=== PATIENT | female | born 1945 | race Caucasian/White ===

== ENCOUNTER 2018-12-27 13:11 | Observation (INO) ==
[2018-12-27] MEDS ORDERED: 0.9 % Sodium Chloride 500 ML IVC ONE (13:19)
[2018-12-27] MEDS ORDERED: *HR* Morphine 2 MG/ML SYRINGE IVP ONE (13:19)
[2018-12-27] MEDS ORDERED: Ondansetron 4 MG/2 ML VIAL IVP ONE (13:19)
[2018-12-27] MEDS ORDERED: Isovue-370 500 ML BOTTLE IVP ONE (13:42)
[2018-12-27] MEDS ORDERED: Pantoprazole 40 MG VIAL IVP ONE (13:45)
--- NOTE | 2018-12-27 13:46 | Emergency Department Note ---
Disposition Clinical Impression: Metastatic disease Chest pain Qualifiers: Chest pain type: unspecified Qualified Code(s): R07.9 - Chest pain, unspecified Lung cancer Qualifiers: Laterality: unspecified laterality Lung location: unspecified part of lung Qualified Code(s): C34.90 - Malignant neoplasm of unspecified part of unspecified bronchus or lung Anemia Qualifiers: Anemia type: unspecified type Qualified Code(s): D64.9 - Anemia, unspecified Disposition: Admitted As Inpatient Condition: Fair Referrals: NONE,PCP [Primary Care Provider] - Time of Disposition: 16:43 General Adult HPI - General Chief complaint: ED Chest Pain Stated complaint: CP Time Seen by Provider: 12/27/18 13:13 Source: patient, family, EMS Mode of arrival: EMS Limitations: no limitations Nursing Notes Reviewed: Yes Vital Signs Reviewed: Yes - History of Present Illness HPI Narrative: 73-year-old female with a history of metastatic lung cancer with metastases to the brain recent postop from the [facility] neurosurgery presents for evaluation of chest pain and epigastric pain. States it started yesterday afternoon. No provoking symptoms. States that she was at rest when it occurred. States it has been fairly constant since then. Reports pain does radiate down her left arm. Describes a sharp pain. Notes dyspnea. States that she became diaphoretic as well as nauseous during the night. Denies any fevers. Has had a nonproductive cough. Patient denies any dysuria hematuria no change in bowels or bladder. Patient's family provided history stating that she recently quit smoking. Patient is not currently under any chemoradiation but does have plans for radiation therapy in the near future. No prior history of ACS or MIs. No history of PE. Pain Scale: 6 - Related Data Home Medications Medication Instructions Recorded Confirmed Acetaminophen [Tylenol] 500 mg PO Q6HR PRN 12/27/18 12/27/18 Carvedilol [Coreg] 12.5 mg PO BIDWM 12/27/18 12/27/18 Dexamethasone 4 mg PO DAILY 12/27/18 12/27/18 Famotidine [Heartburn Prevention] 20 mg PO BID 12/27/18 12/27/18 NIFEdipine [Nifedipine ER] 90 mg PO DAILY 12/27/18 12/27/18 Allergies Allergy/AdvReac Type Severity Reaction Status Date / Time No Known Allergies Allergy Verified 11/10/18 10:18 All systems ED: reviewed and negative except as stated. Constitutional: Denies: fever Cardiovascular: Reports: chest pain Respiratory: Reports: dyspnea. Denies: cough Gastrointestinal: Reports: nausea. Denies: abdominal pain, vomiting Neurological: Denies: headache, weakness Past Medical History - Past Medical History Source: patient Medical history: Reports: no medical history Psychiatric history: Reports: no psych history - Social History Smoking Status: Current every day smoker Smokeless Tobacco Status: No Alcohol use: Reports: none Drug use: Reports: none Physical Exam - General Limitations: no limitations General appearance: alert, in no apparent distress - Head Head exam: normocephalic, normal inspection, other (Neurosurgical scar appears to be well approximated with mark still in place. There are no erythema. There are no dehiscence.) - Eye Eye exam: Present: normal appearance, PERRL, EOMI - ENT ENT exam: normal exam, normal oropharynx - Neck Neck exam: Present: normal inspection, trachea midline - Chest Chest inspection: Present: normal inspection, symmetric chest wall rise - Respiratory Respiratory exam: Present: prolonged expiratory phase, other (Diffusely diminished). Absent: respiratory distress, wheezes - Abdominal Exam Abdominal exam: Present: soft, Non-Tender. Absent: tenderness - Extremities Exam Extremities exam: Present: normal inspection. Absent: pedal edema - Expanded Lower Extremity Exam Neurovascular/Tendon exam: Present: normal capillary refill. Absent: motor deficit, sensory deficit - Back Exam Back exam: Present: normal inspection - Neurological Exam Neurological exam: Present: alert, oriented X3, CN II-XII intact - Expanded Neurological Exam Patient oriented to: Present: person, place, time Speech: Present: fluid speech Cranial nerves: EOM function (II, III, IV, ): Normal, facial sensation (V): Normal, facial palsy (VII): Normal, spinal accessory function (XI): Normal, tongue deviation (XII): Normal Motor strength - LUE: 5/5 Motor strength - RUE: 5/5 Motor strength - LLE: 5/5 Motor strength - RLE: 5/5 Coma Scale Eye Opening: Spontaneous Coma Scale Motor Response: Obeys Commands Coma Scale Verbal Response: Oriented Coma Scale Total: 15 - Skin Skin exam: Present: warm, dry, intact, normal color Course Course Narrative: Patient seen and examined. Patient will get basic cardio pulmonary labs including troponin, BNP. Patient also get lipase hepatic panel. Patient will get CT of the head as well as CT Radha chest abdomen pelvis. Disposition anticipated for admission. - Reevaluation(s) Reevaluation #1: Patient does have a leukocytosis of the patient is on steroids. Time: 14:34 Reevaluation #2: Family and patient updated on plan of care. Patient's aware of her worsening her medical condition with worsening malignancy. Recommend palliative consult and goals of care discussion. Time: 16:46 Vital Signs Temperature 98.6 F 12/27/18 13:17 Pulse Rate 62 12/27/18 13:17 Respiratory Rate 18 12/27/18 13:17 Blood Pressure 117/51 12/27/18 13:17 O2 Sat by Pulse Oximetry 98 12/27/18 13:17 Temperature 98.6 F 12/27/18 13:17 Pulse Rate 60 12/27/18 13:36 Respiratory Rate 18 12/27/18 13:36 Blood Pressure 108/54 12/27/18 13:36 O2 Sat by Pulse Oximetry 96 12/27/18 13:39 Oxygen Delivery Oxygen Delivery Room Air Medical Decision Making - [facility] Narrative Medical decision making narrative: Patient with a history of metastatic lung cancer since for evaluation of chest pain and epigastric pain. Patient's ED workup reveals a leukocytosis likely s econdary to steroid use as well as malignancy. Patient nonfocal neurologic exam. Patient CT scan of the chest and pelvis reveals multiple metastatic abnormalities with new and progressive lesions. Patient's symptoms most likely consistent with progression of metastatic disease. Patient's pain was treated appropriately. Patient will be admitted to the hospital service for further pain control as well as goals care discussion. Patient was not given an aspirin given her recent brain surgery and believes that her chest pain is most likely related to her metastatic and progressive lesions. - Lab Data Lab results reviewed: Yes I reviewed the patient's lab results. Result diagrams: 12/27/18 13:53 12/27/18 13:53 Lab Results 12/27/18 12/27/18 12/27/18 Range/Units 13:53 13:53 13:53 WBC (4.3-11.1) K/mcL RBC (3.82-4.97) M/mcL Hgb (11.5-15.4) g/dL Hct (35.3-44.9) % MCV (83.0-100.0) fL MCH (28.0-33.3) pg MCHC (31.6-35.5) g/dL RDW (11.5-14.5) % Plt Count (140-400) K/mcL MPV (9.4-12.4) fL Seg Neutrophils % % Monocytes % % Neutrophils # (1.6-8.9) K/mcL Monocytes # (0.0-1.3) K/mcL Platelet Estimate (Normal) Clumped Platelets (Not Present) PT 13.2 H (9.4-12.1) Seconds INR 1.2 APTT 24.0 L (26.0-36.0) Seconds Sodium (136-145) mEq/L Potassium (3.5-5.1) mEq/L Chloride (98-107) mEq/L Carbon Dioxide (23-29) mEq/L BUN (8-23) mg/dL Creatinine (0.60-1.20) mg/dL Est GFR ( Amer) (> 60) Est GFR (Non-Af Amer) (> 60) BUN/Creatinine Ratio (6-26) Glucose (70-105) mg/dL Calculated Osmolality (280-300) Lactic Acid (0.5-2.2) mmol/L Calcium (8.6-10.3) mg/dL Total Bilirubin 0.8 (0.3-1.0) mg/dL Direct Bilirubin 0.2 (0.0-0.2) mg/dL Indirect Bilirubin 0.6 (0.0-1.2) mg/dL AST 14 (13-39) Units/L ALT 28 (7-52) Units/L Alkaline Phosphatase 153 H (34-104) Units/L Troponin I (< 0.04) ng/mL B-Natriuretic Peptide 424 H (Less than 100) pg/mL Serum Total Protein 5.4 L (6.4-8.9) g/dL Albumin 2.9 L (3.5-5.7) g/dL Globulin 2.5 (2.4-3.5) g/dL Albumin/Globulin Ratio 1.2 (1.1-2.2) Lipase 102 H (11-82) Units/L Urine Color (Yellow) Urine Clarity (Clear) Urine pH (5.0-8.0) pH Units Ur Specific [place] (1.010-1.025) Urine Protein (Neg-Trace) mg/dL Urine Glucose (UA) (Normal) mg/dL Urine Ketones (Negative) mg/dL Urine Blood (Negative) Urine Nitrite (Negative) Urine Bilirubin (Negative) Urine Urobilinogen (Normal) mg/dL Ur Leukocyte Esterase (Negative) Urine Microscopic RBC (0-3) per hpf Urine Microscopic WBC (0-3) per hpf Ur Squamous Epith Cells (None-Few) per lpf Urine Bacteria (None-Few) per hpf Hyaline Casts (None-Few) per lpf Ur Culture Indicated? (NO) 12/27/18 12/27/18 12/27/18 Range/Units 13:53 13:53 13:53 WBC 42.5 H* (4.3-11.1) K/mcL RBC 2.92 L (3.82-4.97) M/mcL Hgb 8.4 L (11.5-15.4) g/dL Hct 25.4 L (35.3-44.9) % MCV 87.0 (83.0-100.0) fL MCH 28.8 (28.0-33.3) pg MCHC 33.1 (31.6-35.5) g/dL RDW 15.8 H (11.5-14.5) % Plt Count 211 (140-400) K/mcL MPV 12.4 (9.4-12.4) fL Seg Neutrophils % 98.0 % Monocytes % 2.0 % Neutrophils # 41.7 H (1.6-8.9) K/mcL Monocytes # 0.9 (0.0-1.3) K/mcL Platelet Estimate Normal (Normal) Clumped Platelets Few A (Not Present) PT (9.4-12.1) Seconds INR APTT (26.0-36.0) Seconds Sodium 132 L (136-145) mEq/L Potassium 4.1 (3.5-5.1) mEq/L Chloride 102 (98-107) mEq/L Carbon Dioxide 23 (23-29) mEq/L BUN 20 (8-23) mg/dL Creatinine 0.44 L (0.60-1.20) mg/dL Est GFR ( Amer) > 60 (> 60) Est GFR (Non-Af Amer) > 60 (> 60) BUN/Creatinine Ratio 45 H (6-26) Glucose 178 H (70-105) mg/dL Calculated Osmolality 281 (280-300) Lactic Acid 1.1 (0.5-2.2) mmol/L Calcium 8.5 L (8.6-10.3) mg/dL Total Bilirubin (0.3-1.0) mg/dL Direct Bilirubin (0.0-0.2) mg/dL Indirect Bilirubin (0.0-1.2) mg/dL AST (13-39) Units/L ALT (7-52) Units/L Alkaline Phosphatase (34-104) Units/L Troponin I 0.03 (< 0.04) ng/mL B-Natriuretic Peptide (Less than 100) pg/mL Serum Total Protein (6.4-8.9) g/dL Albumin (3.5-5.7) g/dL Globulin (2.4-3.5) g/dL Albumin/Globulin Ratio (1.1-2.2) Lipase (11-82) Units/L Urine Color (Yellow) Urine Clarity (Clear) Urine pH (5.0-8.0) pH Units Ur Specific [place] (1.010-1.025) Urine Protein (Neg-Trace) mg/dL Urine Glucose (UA) (Normal) mg/dL Urine Ketones (Negative) mg/dL Urine Blood (Negative) Urine Nitrite (Negative) Urine Bilirubin (Negative) Urine Urobilinogen (Normal) mg/dL Ur Leukocyte Esterase (Negative) Urine Microscopic RBC (0-3) per hpf Urine Microscopic WBC (0-3) per hpf Ur Squamous Epith Cells (None-Few) per lpf Urine Bacteria (None-Few) per hpf Hyaline Casts (None-Few) per lpf Ur Culture Indicated? (NO) 12/27/18 Range/Units Unknown WBC (4.3-11.1) K/mcL RBC (3.82-4.97) M/mcL Hgb (11.5-15.4) g/dL Hct (35.3-44.9) % MCV (83.0-100.0) fL MCH (28.0-33.3) pg MCHC (31.6-35.5) g/dL RDW (11.5-14.5) % Plt Count (140-400) K/mcL MPV (9.4-12.4) fL Seg Neutrophils % % Monocytes % % Neutrophils # (1.6-8.9) K/mcL Monocytes # (0.0-1.3) K/mcL Platelet Estimate (Normal) Clumped Platelets (Not Present) PT (9.4-12.1) Seconds INR APTT (26.0-36.0) Seconds Sodium (136-145) mEq/L Potassium (3.5-5.1) mEq/L Chloride (98-107) mEq/L Carbon Dioxide (23-29) mEq/L BUN (8-23) mg/dL Creatinine (0.60-1.20) mg/dL Est GFR ( Amer) (> 60) Est GFR (Non-Af Amer) (> 60) BUN/Creatinine Ratio (6-26) Glucose (70-105) mg/dL Calculated Osmolality (280-300) Lactic Acid (0.5-2.2) mmol/L Calcium (8.6-10.3) mg/dL Total Bilirubin (0.3-1.0) mg/dL Direct Bilirubin (0.0-0.2) mg/dL Indirect Bilirubin (0.0-1.2) mg/dL AST (13-39) Units/L ALT (7-52) Units/L Alkaline Phosphatase (34-104) Units/L Troponin I (< 0.04) ng/mL B-Natriuretic Peptide (Less than 100) pg/mL Serum Total Protein (6.4-8.9) g/dL Albumin (3.5-5.7) g/dL Globulin (2.4-3.5) g/dL Albumin/Globulin Ratio (1.1-2.2) Lipase (11-82) Units/L Urine Color Yellow (Yellow) Urine Clarity Clear (Clear) Urine pH 6.0 (5.0-8.0) pH Units Ur Specific [place]gil > 1.030 H (1.010-1.025) Urine Protein Negative (Neg-Trace) mg/dL Urine Glucose (UA) Normal (Normal) mg/dL Urine Ketones Negative (Negative) mg/dL Urine Blood Trace H (Negative) Urine Nitrite Negative (Negative) Urine Bilirubin Negative (Negative) Urine Urobilinogen Normal (Normal) mg/dL Ur Leukocyte Esterase Small H (Negative) Urine Microscopic RBC 3-5 H (0-3) per hpf Urine Microscopic WBC 30-50 H (0-3) per hpf Ur Squamous Epith Cells Many H (None-Few) per lpf Urine Bacteria Many H (None-Few) per hpf Hyaline Casts None Seen (None-Few) per lpf Ur Culture Indicated? NO. A (NO) - Radiology Data Radiology results reviewed: Yes I reviewed the patient's radiology results. Chest X-Ray 12/27/18 13:19 IMPRESSION: Cavitary left upper lobe mass, presumed malignant. New right lower lung lesion, possibly pleural mass or loculated pleural fluid. D/ / 12/27/2018 14:02:18 Stas Conroy MD / juan carlos Interpreting Provider: Stas Conroy MD CT Dissection 12/27/18 13:42 IMPRESSION: 1. Atherosclerotic disease of the aorta, without evidence of aneurysm or dissection. 2. Interval increase in size of the patient's left upper lobe cavitary mass, most consistent with progressive primary lung cancer. 3. New small bilateral pleural effusions with mild bibasilar atelectasis. 4. Interval increase in size of a now 12 mm left lower lobe pulmonary nodule, most consistent with metastatic disease. 5. Interval enlargement of a malignant and likely metastatic AP window lymph node. 6. Interval enlargement of bilateral adrenal metastases. 7. Multiple various sized low-attenuation nodules within the pancreatic body and tail, most likely reflecting metastatic disease given their multiplicity. A primary pancreatic malignancy cannot be entirely excluded. 8. Fat stranding with upper quadrant with multiple scattered low-attenuation nodular lesions throughout the mesentery are most consistent with peritoneal carcinomatosis, as detailed above. 9. Moderate amount of nonspecific free pelvic fluid. 10. Interval increase in size of a destructive osseous metastasis of the right 7th rib. D/ / Sim Medellin MD / Sim Medellin MD Interpreting Provider: Sim Medellin MD Head CT 12/27/18 13:42 IMPRESSION: 1. Multiple brain lesions as described compatible with metastatic disease. 2. No evidence of acute intracranial hemorrhage or midline shift or herniation. 3. Postsurgical changes in the right parieto-occipital region. D/ / 12/27/2018 15:41:21 Bella [facility]gen MD [facility] Interpre[facility] Provider: Bella Virgen MD - EKG Data EKG #1 EKG attestation: Yes I reviewed and interpreted this EKG. EKG shows normal: sinus rhythm Rate: normal Rhythm: NSR [place]/QRS: normal T wave inversions noted in: aVL, aVR, v1 Interpretation: no acute changes S.B.A.R. - S.B.A.RAyla Situation: Demographics Background: Presenting Complaint Assessment: Vital Signs, Patient/Family Expectation Recommendation: Barrier(s) to disposition, Recommendation based on pending studies, treatments, or consults S.B.A.RAyla Report Given to: Dr. Kait Lewis Repor Time: 16:38 Attestation Statement - Attestation Attestation: I, Anshul Taylor DO, examined this patient [id number] and my medical decision-making was reviewed with Dr. Keegan Paige, Resident Physician. I agree with the documented findings, disposition and treatment plan as described except to the extent set forth below. I personally supervised and was present for the avalos/critical portions of the procedures completed by the resident documented below. Please see my progress notes for details.
[2018-12-27 14:14] LABS: Hematocrit 25.4 % (35.3-44.9); Hemoglobin 8.4 g/dL (11.5-15.4); Mean Corpuscular HGB Conc 33.1 g/dL (31.6-35.5); Mean Corpuscular Hemoglobin 28.8 pg (28.0-33.3); Mean Platelet Volume 12.4 fL (9.4-12.4); Platelet Count 211 K/mcL (140-400); Red Blood Count 2.92 M/mcL (3.82-4.97); Red Cell Distribution Width 15.8 % (11.5-14.5)
[2018-12-27 14:18] LABS: INR 1.2; Prothrombin Time 13.2 Seconds (9.4-12.1)
[2018-12-27 14:30] LABS: Albumin 2.9 g/dL (3.5-5.7); Albumin/Globulin Ratio 1.2 (1.1-2.2); Bilirubin,Direct 0.2 mg/dL (0.0-0.2); Bilirubin,Indirect 0.6 mg/dL (0.0-1.2); Bilirubin,Total 0.8 mg/dL (0.3-1.0); Globulin 2.5 g/dL (2.4-3.5); Total Protein 5.4 g/dL (6.4-8.9)
[2018-12-27 14:31] LABS: BUN/Creatinine Ratio 45 (6-26); Blood Urea Nitrogen 20 mg/dL (8-23); Calcium 8.5 mg/dL (8.6-10.3); Carbon Dioxide 23 mEq/L (23-29); Chloride 102 mEq/L (98-107); Glucose 178 mg/dL (70-105); Osmolality,Calculated 281 (280-300); Potassium 4.1 mEq/L (3.5-5.1); Sodium 132 mEq/L (136-145); eGFR For Non-African Americans > 60 (> 60)
[2018-12-27 14:32] LABS: Troponin I 0.03 ng/mL (< 0.04)
[2018-12-27 15:57] LABS: Monocytes # 0.9 K/mcL (0.0-1.3); Neutrophils # 41.7 K/mcL (1.6-8.9)
[2018-12-27 15:58] LABS: Platelet Estimate Normal (Normal)
[2018-12-27 15:59] LABS: Platelet Clumps Few (Not Present)
--- NOTE | 2018-12-27 17:03 | Emergency Department Note ---
Disposition Clinical Impression: Metastatic disease Chest pain Qualifiers: Chest pain type: unspecified Qualified Code(s): R07.9 - Chest pain, unspecified Lung cancer Qualifiers: Laterality: unspecified laterality Lung location: unspecified part of lung Qualified Code(s): C34.90 - Malignant neoplasm of unspecified part of unspecified bronchus or lung Anemia Qualifiers: Anemia type: unspecified type Qualified Code(s): D64.9 - Anemia, unspecified Disposition: Admitted As Inpatient Condition: Fair Referrals: NONE,PCP [Primary Care Provider] - Time of Disposition: 18:02 General Adult HPI - General Chief complaint: ED Chest Pain Stated complaint: CP Time Seen by Provider: 12/27/18 13:13 Source: patient, family, EMS Mode of arrival: EMS Limitations: no limitations - History of Present Illness Pain Scale: 6 - Related Data Home Medications Medication Instructions Recorded Confirmed Acetaminophen [Tylenol] 500 mg PO Q6HR PRN 12/27/18 12/27/18 Carvedilol [Coreg] 12.5 mg PO BIDWM 12/27/18 12/27/18 Dexamethasone 4 mg PO DAILY 12/27/18 12/27/18 Famotidine [Heartburn Prevention] 20 mg PO BID 12/27/18 12/27/18 NIFEdipine [Nifedipine ER] 90 mg PO DAILY 12/27/18 12/27/18 Allergies Allergy/AdvReac Type Severity Reaction Status Date / Time No Known Allergies Allergy Verified 11/10/18 10:18 Constitutional: Denies: fever Cardiovascular: Reports: chest pain Respiratory: Reports: dyspnea. Denies: cough Gastrointestinal: Reports: nausea. Denies: abdominal pain, vomiting Neurological: Denies: headache, weakness Past Medical History - Past Medical History Medical history: Reports: no medical history Psychiatric history: Reports: no psych history - Social History Smoking Status: Current every day smoker Smokeless Tobacco Status: No Alcohol use: Reports: none Drug use: Reports: none Physical Exam - General Limitations: no limitations General appearance: alert, in no apparent distress Course Vital Signs Temperature 98.6 F 12/27/18 13:17 Pulse Rate 62 12/27/18 13:17 Respiratory Rate 18 12/27/18 13:17 Blood Pressure 117/51 12/27/18 13:17 O2 Sat by Pulse Oximetry 98 12/27/18 13:17 Temperature 98.6 F 12/27/18 13:17 Pulse Rate 60 12/27/18 13:36 Respiratory Rate 18 12/27/18 13:36 Blood Pressure 108/54 12/27/18 13:36 O2 Sat by Pulse Oximetry 96 12/27/18 13:39 Oxygen Delivery Oxygen Delivery Room Air Medical Decision Making - Lab Data Result diagrams: 12/27/18 13:53 12/27/18 13:53 Lab Results 12/27/18 12/27/18 12/27/18 Range/Units 13:53 13:53 13:53 WBC (4.3-11.1) K/mcL RBC (3.82-4.97) M/mcL Hgb (11.5-15.4) g/dL Hct (35.3-44.9) % MCV (83.0-100.0) fL MCH (28.0-33.3) pg MCHC (31.6-35.5) g/dL RDW (11.5-14.5) % Plt Count (140-400) K/mcL MPV (9.4-12.4) fL Seg Neutrophils % % Monocytes % % Neutrophils # (1.6-8.9) K/mcL Monocytes # (0.0-1.3) K/mcL Platelet Estimate (Normal) Clumped Platelets (Not Present) PT 13.2 H (9.4-12.1) Seconds INR 1.2 APTT 24.0 L (26.0-36.0) Seconds Sodium (136-145) mEq/L Potassium (3.5-5.1) mEq/L Chloride (98-107) mEq/L Carbon Dioxide (23-29) mEq/L BUN (8-23) mg/dL Creatinine (0.60-1.20) mg/dL Est GFR ( Amer) (> 60) Est GFR (Non-Af Amer) (> 60) BUN/Creatinine Ratio (6-26) Glucose (70-105) mg/dL Calculated Osmolality (280-300) Lactic Acid (0.5-2.2) mmol/L Calcium (8.6-10.3) mg/dL Total Bilirubin 0.8 (0.3-1.0) mg/dL Direct Bilirubin 0.2 (0.0-0.2) mg/dL Indirect Bilirubin 0.6 (0.0-1.2) mg/dL AST 14 (13-39) Units/L ALT 28 (7-52) Units/L Alkaline Phosphatase 153 H (34-104) Units/L Troponin I (< 0.04) ng/mL B-Natriuretic Peptide 424 H (Less than 100) pg/mL Serum Total Protein 5.4 L (6.4-8.9) g/dL Albumin 2.9 L (3.5-5.7) g/dL Globulin 2.5 (2.4-3.5) g/dL Albumin/Globulin Ratio 1.2 (1.1-2.2) Lipase 102 H (11-82) Units/L Urine Color (Yellow) Urine Clarity (Clear) Urine pH (5.0-8.0) pH Units Ur Specific [place] (1.010-1.025) Urine Protein (Neg-Trace) mg/dL Urine Glucose (UA) (Normal) mg/dL Urine Ketones (Negative) mg/dL Urine Blood (Negative) Urine Nitrite (Negative) Urine Bilirubin (Negative) Urine Urobilinogen (Normal) mg/dL Ur Leukocyte Esterase (Negative) Urine Microscopic RBC (0-3) per hpf Urine Microscopic WBC (0-3) per hpf Ur Squamous Epith Cells (None-Few) per lpf Urine Bacteria (None-Few) per hpf Hyaline Casts (None-Few) per lpf Ur Culture Indicated? (NO) 12/27/18 12/27/18 12/27/18 Range/Units 13:53 13:53 13:53 WBC 42.5 H* (4.3-11.1) K/mcL RBC 2.92 L (3.82-4.97) M/mcL Hgb 8.4 L (11.5-15.4) g/dL Hct 25.4 L (35.3-44.9) % MCV 87.0 (83.0-100.0) fL MCH 28.8 (28.0-33.3) pg MCHC 33.1 (31.6-35.5) g/dL RDW 15.8 H (11.5-14.5) % Plt Count 211 (140-400) K/mcL MPV 12.4 (9.4-12.4) fL Seg Neutrophils % 98.0 % Monocytes % 2.0 % Neutrophils # 41.7 H (1.6-8.9) K/mcL Monocytes # 0.9 (0.0-1.3) K/mcL Platelet Estimate Normal (Normal) Clumped Platelets Few A (Not Present) PT (9.4-12.1) Seconds INR APTT (26.0-36.0) Seconds Sodium 132 L (136-145) mEq/L Potassium 4.1 (3.5-5.1) mEq/L Chloride 102 (98-107) mEq/L Carbon Dioxide 23 (23-29) mEq/L BUN 20 (8-23) mg/dL Creatinine 0.44 L (0.60-1.20) mg/dL Est GFR ( Amer) > 60 (> 60) Est GFR (Non-Af Amer) > 60 (> 60) BUN/Creatinine Ratio 45 H (6-26) Glucose 178 H (70-105) mg/dL Calculated Osmolality 281 (280-300) Lactic Acid 1.1 (0.5-2.2) mmol/L Calcium 8.5 L (8.6-10.3) mg/dL Total Bilirubin (0.3-1.0) mg/dL Direct Bilirubin (0.0-0.2) mg/dL Indirect Bilirubin (0.0-1.2) mg/dL AST (13-39) Units/L ALT (7-52) Units/L Alkaline Phosphatase (34-104) Units/L Troponin I 0.03 (< 0.04) ng/mL B-Natriuretic Peptide (Less than 100) pg/mL Serum Total Protein (6.4-8.9) g/dL Albumin (3.5-5.7) g/dL Globulin (2.4-3.5) g/dL Albumin/Globulin Ratio (1.1-2.2) Lipase (11-82) Units/L Urine Color (Yellow) Urine Clarity (Clear) Urine pH (5.0-8.0) pH Units Ur Specific [place] (1.010-1.025) Urine Protein (Neg-Trace) mg/dL Urine Glucose (UA) (Normal) mg/dL Urine Ketones (Negative) mg/dL Urine Blood (Negative) Urine Nitrite (Negative) Urine Bilirubin (Negative) Urine Urobilinogen (Normal) mg/dL Ur Leukocyte Esterase (Negative) Urine Microscopic RBC (0-3) per hpf Urine Microscopic WBC (0-3) per hpf Ur Squamous Epith Cells (None-Few) per lpf Urine Bacteria (None-Few) per hpf Hyaline Casts (None-Few) per lpf Ur Culture Indicated? (NO) 12/27/18 Range/Units Unknown WBC (4.3-11.1) K/mcL RBC (3.82-4.97) M/mcL Hgb (11.5-15.4) g/dL Hct (35.3-44.9) % MCV (83.0-100.0) fL MCH (28.0-33.3) pg MCHC (31.6-35.5) g/dL RDW (11.5-14.5) % Plt Count (140-400) K/mcL MPV (9.4-12.4) fL Seg Neutrophils % % Monocytes % % Neutrophils # (1.6-8.9) K/mcL Monocytes # (0.0-1.3) K/mcL Platelet Estimate (Normal) Clumped Platelets (Not Present) PT (9.4-12.1) Seconds INR APTT (26.0-36.0) Seconds Sodium (136-145) mEq/L Potassium (3.5-5.1) mEq/L Chloride (98-107) mEq/L Carbon Dioxide (23-29) mEq/L BUN (8-23) mg/dL Creatinine (0.60-1.20) mg/dL Est GFR ( Amer) (> 60) Est GFR (Non-Af Amer) (> 60) BUN/Creatinine Ratio (6-26) Glucose (70-105) mg/dL Calculated Osmolality (280-300) Lactic Acid (0.5-2.2) mmol/L Calcium (8.6-10.3) mg/dL Total Bilirubin (0.3-1.0) mg/dL Direct Bilirubin (0.0-0.2) mg/dL Indirect Bilirubin (0.0-1.2) mg/dL AST (13-39) Units/L ALT (7-52) Units/L Alkaline Phosphatase (34-104) Units/L Troponin I (< 0.04) ng/mL B-Natriuretic Peptide (Less than 100) pg/mL Serum Total Protein (6.4-8.9) g/dL Albumin (3.5-5.7) g/dL Globulin (2.4-3.5) g/dL Albumin/Globulin Ratio (1.1-2.2) Lipase (11-82) Units/L Urine Color Yellow (Yellow) Urine Clarity Clear (Clear) Urine pH 6.0 (5.0-8.0) pH Units Ur Specific [place] > 1.030 H (1.010-1.025) Urine Protein Negative (Neg-Trace) mg/dL Urine Glucose (UA) Normal (Normal) mg/dL Urine Ketones Negative (Negative) mg/dL Urine Blood Trace H (Negative) Urine Nitrite Negative (Negative) Urine Bilirubin Negative (Negative) Urine Urobilinogen Normal (Normal) mg/dL Ur Leukocyte Esterase Small H (Negative) Urine Microscopic RBC 3-5 H (0-3) per hpf Urine Microscopic WBC 30-50 H (0-3) per hpf Ur Squamous Epith Cells Many H (None-Few) per lpf Urine Bacteria Many H (None-Few) per hpf Hyaline Casts None Seen (None-Few) per lpf Ur Culture Indicated? NO. A (NO) Attestation Statement - Attestation Attestation: I, Anshul Taylor DO, examined this patient [id number] and my medical decision-making was reviewed with Dr. Keegan Paige, Resident Physician. I agree with the documented findings, disposition and treatment plan as described except to the extent set forth below. I personally supervised and was present for the avalos/critical portions of the procedures completed by the resident documented below. Please see my progress notes for details. 73-year-old female presents emergency room for evaluation of chest discomfort and pain. Patient recently was evaluated at [facility] where she had a mass removed from her brain. This was a days ago. She has known metastatic lung cancer and has not started chemotherapy or radiation therapy yet at this time. Patient was diagnosed 2 weeks ago. She is denying any fevers or chills. She does not have any nausea vomiting or diarrhea. Denies any headache or vision change. She has not fallen or injured herself. Patient will have detailed cardiac evaluation as well as CT angiography of the chest abdomen and pelvis CT imaging of the head and detailed laboratory workup completed this point. Patient does not show any acute signs of decompensation but because of the history there is concern for clinical decompensation. Postoperative surgical site on the posterior aspect of the right side of the skull is stable with no bleeding noted. No redness noted. Head is atraumatic otherwise. Pupils are equal and reactive. Extracted muscles are intact. Oropharynx is patent. Trachea is midline. Lungs are clear to auscultation. Heart is regular. Abdomen is soft. No guarding rigidity or peritoneal symptoms noted. No signs of swelling in the extremities. Patient is otherwise describing no distress. She does have pain medication and place at home. Vital signs otherwise unremarkable. Patient is resting comfortably. Detailed workup to be established family informed the clinical presentation secondary to the most recent surgical intervention. No visible signs of swelling or asymmetry to the lower extremities that would account for concern for emboli. Detailed workup will be established and completed. Expect the patient will require admission once this workup has been resulted. See detailed documentation the physical exam, medical intervention, medical decision-making and disposition in the resident physician's note. No critical care provider the patient's treatment course at this time. 1800 Patient is found to have stable workup at this time. Multiple findings noted on CT imaging concerning for progressive metastatic disease. Clinical outcome is most likely poor over the next 6 months. She does not have any acute signs of myocardial infarction or infection at this time. Hospitalist Dr. Carballo reviewed the case. Did not have any other recommendations or concerns at this time. Currently the patient is a full code. Patient will be monitored here until treatment course is established and admission is completed. No critical care pad the patient's treatment course.
[2018-12-27 17:17] LABS: Bilirubin,Urine Negative (Negative); Blood,Urine Trace (Negative); Clarity,Urine Clear (Clear); Color,Urine Yellow (Yellow); Glucose,Urine (UA) Normal (Normal); Ketones,Urine Negative (Negative); Leukocyte Esterase,Urine Small (Negative); Nitrite,Urine Negative (Negative); Protein,Urine Negative (Neg-Trace); Specific Gravity,Urine > 1.030 (1.010-1.025); Urobilinogen,Urine Normal (Normal)
[2018-12-27 17:19] LABS: Bacteria,Urine Many per hpf (None-Few); Hyaline Casts,Urine None Seen per lpf (None-Few); Squamous Epithelial Cell,Urine Many per lpf (None-Few); WBC,Urine 30-50 per hpf (0-3)
[2018-12-27] MEDS ORDERED: MOM Conc 10 ML UD.LIQ PO PRN (18:10)
[2018-12-27] MEDS ORDERED: Naloxone 0.4 MG/ML INJ IVP PRN (18:10)
[2018-12-27] MEDS ORDERED: Ondansetron 4 MG/2 ML VIAL IVP PRN (18:10)
[2018-12-27] MEDS ORDERED: Acetaminophen 325 MG TABLET PO PRN (18:10)
[2018-12-27] MEDS ORDERED: *HR* HYDROcodone/Acet 5/325 mg TABLET PO PRN ×2 (18:10→18:33)
[2018-12-27] MEDS ORDERED: Aspirin 325 MG TABLET PO ONE (18:13)
[2018-12-27] MEDS ORDERED: Ipratropium/Albuterol Neb 3 ML IH PRN (18:16)
--- NOTE | 2018-12-27 18:25 | Internal Med History&Physical ---
Date of Encounter: 12/27/18 Time of Encounter: 18:01 Internal Medicine - H&P: HPI Chief complaint: chest pain Admitted From: Home Plans for Post Hospital Care: Home History of present illness: Ms. Flynn is a 73 year old female with PMH of newly diagnosed with lung ca with extensive metastatic disease including the brain. Pt was seen and examined with daughter and RN present at bedside. Pt states she was diagnosed with lung ca within the last month and given significant brain mets, she underwent surgical resection of the mass yesterday at [facility]. She states last night she started having sharp midline chest pain with radiation to the left arm that persisted until this morning. She states taking a deep breath made her pain worst. Currently she is resting in bed and denies any chest pain at this time. Has hx of extensive tobacco abuse and reports of quitting two weeks ago. Pt states she is scheduled for her first appointment with oncology at [facility] on January 02. ER workup included CT head, CT chest, abd/pelvis imaging workup reported extensive metastatic disease with concern for pancreatic malignancy being the primary source. I had an extensive conversation with the patient in regards to her advance directives, she wishes to be a DNR/DNI Past Med Surg Social Fam HX - Past Medical History Medical history: malignancy (metastatic lung ca) Psychiatric history: no psych history - Past Surgical History Additional surgical history: tumor removal from head - Social History Smoking Status: Former smoker Smokeless Tobacco Status: No Alcohol use: none Drug use: none Internal Medicine - H&P: Meds Acetaminophen [Tylenol] 500 mg PO Q6HR PRN 12/27/18 [History] Carvedilol [Coreg] 12.5 mg PO BIDWM 12/27/18 [History] Dexamethasone 4 mg PO DAILY 12/27/18 [History] Famotidine [Heartburn Prevention] 20 mg PO BID 12/27/18 [History] NIFEdipine [Nifedipine ER] 90 mg PO DAILY 12/27/18 [History] Allergy/AdvReac Type Severity Reaction Status Date / Time No Known Allergies Allergy Verified 11/10/18 10:18 All Systems PM: A 10-system review of systems was performed and is negative for pertinent findings except as documented above in the HPI. Review of systems: Ten point ROS is negative except as listed in HPI - Constitutional Vitals: Temp Pulse Resp BP Pulse Ox 98.6 F 60 18 108/54 96 12/27/18 13:17 12/27/18 13:36 12/27/18 13:36 12/27/18 13:36 12/27/18 13:39 Exam: General: No acute distress, AAO x 3 HEENT: EOMI, NC/AT, no scleral icterus, PERRLA, mark intact at the right pareito-occipital region of the skull-site clean, no bleeding noted Respiratory: coarse breath sounds, no wheezing, no rales Cardiovascular: Regular, Rate, Rhythm, No murmurs GI: Soft, Non tender, non distended, normal bowel sounds Ext: No edema, no tenderness, positive pulses Neuro: AAO x 3, no focal deficits Internal Med - H&P Results - Labs CBC & Chem 7: 12/27/18 13:53 12/27/18 13:53 Labs: Short CBC 12/27/18 Range/Units 13:53 WBC 42.5 H* (4.3-11.1) K/mcL Hgb 8.4 L (11.5-15.4) g/dL Hct 25.4 L (35.3-44.9) % Plt Count 211 (140-400) K/mcL Neutrophils # 41.7 H (1.6-8.9) K/mcL BMP 12/27/18 13:53 Sodium 132 L Potassium 4.1 Chloride 102 Carbon Dioxide 23 BUN 20 Creatinine 0.44 L Glucose 178 H Calcium 8.5 L Cardiac Enzymes 12/27/18 Range/Units 13:53 Troponin I 0.03 (< 0.04) ng/mL Liver Function 12/27/18 Range/Units 13:53 Total Bilirubin 0.8 (0.3-1.0) mg/dL Direct Bilirubin 0.2 (0.0-0.2) mg/dL AST 14 (13-39) Units/L ALT 28 (7-52) Units/L Alkaline Phosphatase 153 H (34-104) Units/L Albumin 2.9 L (3.5-5.7) g/dL Urine 12/27/18 Range/Units Unknown Urine Color Yellow (Yellow) Urine Clarity Clear (Clear) Urine pH 6.0 (5.0-8.0) pH Units Ur Specific [place] > 1.030 H (1.010-1.025) Urine Protein Negative (Neg-Trace) mg/dL Urine Glucose (UA) Normal (Normal) mg/dL - Impressions ITS Impressions Chest X-Ray 12/27/18 13:19 IMPRESSION: Cavitary left upper lobe mass, presumed malignant. New right lower lung lesion, possibly pleural mass or loculated pleural fluid. D/ / 12/27/2018 14:02:18 Stas Conroy MD / juan [facility] Interpreting Provider: Stas Conroy MD CT Dissection 12/27/18 13:42 IMPRESSION: 1. Atherosclerotic disease of the aorta, without evidence of aneurysm or dissection. 2. Interval increase in size of the patient's left upper lobe cavitary mass, most consistent with progressive primary lung cancer. 3. New small bilateral pleural effusions with mild bibasilar atelectasis. 4. Interval increase in size of a now 12 mm left lower lobe pulmonary nodule, most consistent with metastatic disease. 5. Interval enlargement of a malignant and likely metastatic AP window lymph node. 6. Interval enlargement of bilateral adrenal metastases. 7. Multiple various sized low-attenuation nodules within the pancreatic body and tail, most likely reflecting metastatic disease given their multiplicity. A primary pancreatic malignancy cannot be entirely excluded. 8. Fat stranding within the left upper quadrant with multiple scattered low-attenuation nodular lesions throughout the mesentery are most consistent with peritoneal carcinomatosis, as detailed above. 9. Moderate amount of nonspecific free pelvic fluid. 10. Interval increase in size of a destructive osseous metastasis of the right 7th rib. D/ / 12/27/2018 16:23:05 [facility] Provider: Sim Medellin MD Head CT 12/27/18 13:42 IMPRESSION: 1. Multiple brain lesions as described compatible with metastatic disease. 2. No evidence of acute intracranial hemorrhage or midline shift or herniation. 3. Postsurgical changes in the right parieto-occipital region. D/ / 12/27/2018 15:41:21 Bella Virgen MD / [facility] Interpreting Provider: Bella Virgen MD - Summary of Assessment and Plan Summary of Assessment and Plan: Patient is a 73y/o female with newly diagnosed metastatic disease who presents to the ER for evaluation of chest pain. 1. Chest pain likely secondary to underlying malignancy and unlikely ACS will obtain 2D echo, monitor serial troponins continue tele monitoring will hold off on Aspirin at this time given recent brain surgery 2. Extensive metastatic disease with concern for pancreatic ca being the primary source Extensive mets to the brain, lungs, peritoneum Pt has yet to have a formal appointment with oncology at [facility], scheduled on January 02. given extensive disease and poor prognosis, will obtain palliative care evaluation to establish goals of care continue supportive care pain control, anti-emetic support as needed continue dexamethasone 4mg po qdaily 3. Leukocytosis likely reactive given recent steroid use however given recent surgery and immunocompromised status, will give one time dose of Vancomycin and Zosyn will closely monitor DVT ppx: SCD Care plan discussed with patient/family/RN - Time Spent With Patient Total time spent is greater than 50% in coordination of care (as documented) at patient's floor/unit and/or counseling patient: 25 - 35 minutes
[2018-12-27] MEDS ORDERED: Perflutren Lipid Microsphere 1.3 ML in 0.9 % Sodium Chloride 8.7 ML IVP ONE (19:16)
[2018-12-27] MEDS: Piperacillin/Tazobactam 3.375 GM in 0.9 % Sodium Chloride Mini Bag 100 ML IVPB SCH (20:59)
[2018-12-27] MEDS: 0.9 % Sodium Chloride 1,000 ML IVC SCH (20:59)
[2018-12-27] MEDS: Famotidine 20 MG TABLET PO SCH (21:01)
[2018-12-27] MEDS: *HR* OxyCODONE Immed Rel 5 MG TABLET PO PRN (21:12)
[2018-12-28 01:42] LABS: Alanine Aminotransferase 25 Units/L (7-52); Albumin 2.8 g/dL (3.5-5.7); Albumin/Globulin Ratio 1.2 (1.1-2.2); Alkaline Phosphatase 154 Units/L (34-104); Aspartate Amino Transferase 13 Units/L (13-39); BUN/Creatinine Ratio 40 (6-26); Bilirubin,Total 0.8 mg/dL (0.3-1.0); Blood Urea Nitrogen 23 mg/dL (8-23); Calcium 8.3 mg/dL (8.6-10.3); Carbon Dioxide 23 mEq/L (23-29); Chloride 102 mEq/L (98-107); Chol/HDL Ratio 4.7 (0-4.9); Cholesterol 146 mg/dL (< 200); Globulin 2.3 g/dL (2.4-3.5); Glucose 140 mg/dL (70-105); HDL Cholesterol 31 mg/dL (40-59); LDL Cholesterol,Calculated 98 mg/dL (0-99); Osmolality,Calculated 280 (280-300); Potassium 4.4 mEq/L (3.5-5.1); Sodium 132 mEq/L (136-145); Total Protein 5.1 g/dL (6.4-8.9); Triglycerides 86 mg/dL (< 150); eGFR For Non-African Americans > 60 (> 60)
[2018-12-28 01:51] LABS: Mean Platelet Volume 12.5 fL (9.4-12.4); Segmented Neutrophils % 92.8 %
[2018-12-28 01:52] LABS: Basophils # 0.1 K/mcL (0.0-0.2); Basophils % 0.3 %; Hematocrit 24.2 % (35.3-44.9); Hemoglobin 7.9 g/dL (11.5-15.4); Immature Granulocytes % 2.2 % (0-4); Lymphocytes # 1.3 K/mcL (0.6-4.6); Lymphocytes % 2.8 %; Mean Corpuscular HGB Conc 32.6 g/dL (31.6-35.5); Mean Corpuscular Hemoglobin 28.4 pg (28.0-33.3); Mean Corpuscular Volume 87.1 fL (83.0-100.0); Monocytes # 0.9 K/mcL (0.0-1.3); Monocytes % 1.9 %; Platelet Count 198 K/mcL (140-400); Red Blood Count 2.78 M/mcL (3.82-4.97); Red Cell Distribution Width 15.8 % (11.5-14.5)
[2018-12-28 02:01] LABS: Neutrophils # 43.8 K/mcL (1.6-8.9)
[2018-12-28 02:16] LABS: Platelet Estimate Normal (Normal)
[2018-12-28 02:17] LABS: Hypochromasia Present (Not Present)
--- NOTE | 2018-12-28 03:03 | Event Note ---
Date of Encounter: 12/28/18 Time of Encounter: 01:52 Notified by nurse of patient troponin elevating to 0.23, still denying any chest pain. Assessed patient at bedside, has had no chest pain since arrival. Discussed elevated troponin and contraindications for anticoagulation given recent brain mass removal one week ago at [facility]. Repeat EKG with no changes. Will repeat troponin in six hours and order cardiology consult. Discussed with Dr Suazo.
[2018-12-28] MEDS: *HR* OxyCODONE Immed Rel 5 MG TABLET PO PRN (07:34)
[2018-12-28] MEDS: Piperacillin/Tazobactam 3.375 GM in 0.9 % Sodium Chloride Mini Bag 100 ML IVPB SCH (08:52)
[2018-12-28] MEDS: Famotidine 20 MG TABLET PO SCH (08:54)
[2018-12-28] MEDS: 0.9 % Sodium Chloride 1,000 ML IVC SCH (08:55)
[2018-12-28] MEDS ORDERED: NIFEdipine XL (24 HR) 30 MG TAB.ER.24 PO SCH (09:00)
[2018-12-28] MEDS ORDERED: NON-FORMULARY MEDICATION 1 EACH EACH (Nifedipine [Nifedipine Er] 90 MG) PO SCH (09:00)
--- NOTE | 2018-12-28 10:34 | Palliative - Consult Note ---
<Yoandy Barnett - Last Filed: 12/28/18 10:09> Date of Encounter: 12/28/18 Time of Encounter: 09:45 - Assessment and Plan (1) Goals of care, counseling/discussion Current Visit: Yes Status: Acute Assessment and plan: Patient continues to wish to be DNR/DNI. Medical decisions are legally made by her daughter Katy. She is aware of all the different areas of lesions in her body and the extant of her lung metastasis and her prognosis, however she continues to have expectations that she will be making a full recovery. Her daughter who is in charge of her medical decisions will be coming in this afternoon to see her. Patient lives with her daughter and son and wishes go back to live with them upon discharge. Patient not interested in Hospice care. - Code status DNR-CCA/DNI. - Will talk with daughter about goals of care and expectations when she comes around late this afternoon. - Pain is currently well controlled with oxycodone and [place] 5/325 at current dosage. No plans to increase dosage. (2) Chest pain Current Visit: Yes Status: Acute Assessment and plan: Likely secondary to underlying malignancy and unlikely ACS. Serial troponins are currently downtrending: .03 x 2, 0.23, 0.10. Patient currently denies any chest pain of SOB. No prir history of [place] or ACS. S/P brain surgery 1 week. - Patient on telemetry. - Cardiology consulted. - ASA withheld at this time given recent brain surgery. Qualifiers: Chest pain type: unspecified Qualified Code(s): R07.9 - Chest pain, unspecified (3) Metastatic disease Current Visit: Yes Status: Acute Assessment and plan: Extensive metastatic disease with concern for pancreatic cancer being the primary source. Extensive mets to the brain, lungs, and peritoneum. Patient has yet to have a formal appointment with oncology at [facility], scheduled on January 02. Poor prognosis given extend of metastatic disease. - Pain currently well controlled. - Patient not interested in hospice care at this point. - Will discuss with daughter who is legal medical decision maker about her care of goals. - Patient on PO steroids. - Continue supportive care - Pain control, anti-emetic support as needed. Chest X-Ray 12/27/18 13:19 IMPRESSION: Cavitary left upper lobe mass, presumed malignant. New right lower thoracic lesion, consistent with rib metastasis as seen on subsequent CT. D/ / 12/27/2018 14:02:18 Stas Conroy MD / [facility] Interpreting Provider: Stas Conroy MD Dissection 12/27/18 13:42 IMPRESSION: 1. Atherosclerotic disease of the aorta, without evidence of aneurysm or dissection. 2. Interval increase in size of the patient's left upper lobe cavitary mass, most consistent with progressive primary lung cancer. 3. New small bilateral pleural effusions with mild bibasilar atelectasis. 4. Interval increase in size of a now 12 mm left lower lobe pulmonary nodule, most consistent with metastatic disease. 5. Interval enlargement of a malignant and likely metastatic AP window lymph node. 6. Interval enlargement of bilateral adrenal metastases. 7. Multiple various sized low-attenuation nodules within the pancreatic body and tail, most likely reflecting metastatic disease given their multiplicity. A primary pancreatic malignancy cannot be entirely excluded. 8. Fat stranding within the left upper quadrant with multiple scattered low-attenuation nodular lesions throughout the mesentery are most consistent with peritoneal carcinomatosis, as detailed above. 9. Moderate amount of nonspecific free pelvic fluid. 10. Interval increase in size of a destructive osseous metastasis of the right 7th rib. D/ / 12/27/2018 16:23:05 Sim Medellin MD / [facility] Interpreting Provider: Sim Medellin MD Head CT 12/27/18 13:42 IMPRESSION: 1. Multiple brain lesions as described compatible with metastatic disease. 2. No evidence of acute intracranial hemorrhage or midline shift or herniation. 3. Postsurgical changes in the right parieto-occipital region. D/ / 12/27/2018 15:41:21 Bella Virgen MD / [facility] Inter[facility]ting Provider: Bella Virgen MD (4) Leukocytosis Current Visit: Yes Status: Acute Assessment and plan: Uptrendin.5 on admission, currently at 47.2. Likely reactive given recent steroid use. Started on emperic antibiotic treatment due to recent surgery and immunocompromised status. Patient has been afebrile since admission. - Day # 2 Zoysn and Vanc. Qualifiers: Leukocytosis type: bandemia Qualified Code(s): D72.825 - Bandemia Palliative-CN HPI - Data of Consult Consult date: 12/28/18 Requesting Physician: Drew Carballo Primary Care Provider: PCP NONE - Consult Narrative Reason for consult: Goals of care History of present illness: Ms. Flynn is a 73 year old female with PMH of newly diagnosed with lung cancer with extensive metastatic disease including the brain that presented for chest pain on 12/27/18. Patient states that she was diagnosed with lung cancer 4 weeks ago. However 2 weeks ago, she presented to [facility] with deteriorating vision in her L eye. 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 Subsequently, she underwent a resection of the tumor pressing on her optic nerve 1 week ago to prevent any further loss of vision in her L eye. 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 Patient is not currently under any chemoradiation but does have plans for radiation therapy in the near future. She presented to [place] yesterday when she started developing chest pain and SOB. No prior history of ACS or MIs. No history of PE. EKG showed a sinus rhythm with no acute ischemic changes. Serial troponins showed initial rise from .03 up to .23, but then downtrending to .10. Patient's ED work up revealed a leukocytosis likely secondary to steroid use as well as malignancy. Patient had a non-focal neurological exam. Patient CT scan of the chest and pelvis revealed multiple metastatic abnormalities with new and progressive lesions. Patient was admitted for pain control and goals of care. When seen today, patient denied any chest pain or SOB. Denies any wheezing. She denied any nausea or vomiting. She did admit to some diffuse abdominal pain, rating it as a 4-5/10 in severity (which has been her baseline for the past 4 weeks) mostly in the LLQ. She admits to a subjective fever. Denies have a BM but has been passing gas. She says the vision from her L eye has remained stable since her surgery last week at [facility]. Admits to b/l blurry vision, with the R (chonic with no acute changes) worse than the L. Denies any focal weakness. Denies any LOC. Denies any light-headedness or dizziness. Patient is aware of her situation with the extent of her metastatic lesions, but is expecting to make a full recovery. Patient was accompanied by sister Donna by her bedside. Her medical decisions are made by her daughter Latricia. She lives at home with her daughter Latricia and her son Tristan. Up until the surgery, the patient was completely self sufficient: was able to dress herself, bathe herself, move around the house with a cane, and cook for herself. Patient has not interest in hospice care at this point and wishes to be with her daughter and son after discharge. CC: Drew Carballo - Time Spent with Patient Time: Total time spent is greater than 50% in coordination of care (as documented) at patient's floor/unit and/or counseling patient: Time with patient: 30 minutes Past Med Surg Social Fam HX - Past Medical History Medical history: malignancy (metastatic lung ca) Additional medical history: Lung, breast, brain cancer Psychiatric history: no psych history - Past Surgical History Additional surgical history: tumor removal from head - Social History Smoking Status: Former smoker Smokeless Tobacco Status: No Alcohol use: none Drug use: none Medications and Allergies Acetaminophen [Tylenol] 500 mg PO Q6HR PRN 12/27/18 [History] Carvedilol [Coreg] 12.5 mg PO BIDWM 12/27/18 [History] Dexamethasone 4 mg PO DAILY 12/27/18 [History] Famotidine [Heartburn Prevention] 20 mg PO BID 12/27/18 [History] NIFEdipine [Nifedipine ER] 90 mg PO DAILY 12/27/18 [History] Allergy/AdvReac Type Severity Reaction Status Date / Time No Known Allergies Allergy Verified 11/10/18 10:18 All systems: reviewed and no additional remarkable complaints except as stated - Constitutional Constitutional ROS PAL: as per HPI, fever(s) - EENT Eyes: no change in vision (No acute change in vision past week) - Cardiovascular Cardiovascular ROS: no chest pain, no chest pain at rest, no chest pain with activity, no leg edema, no pedal edema, no syncope - Respiratory Respiratory: no cough, no dyspnea, no dyspnea on exertion, no wheezing - Gastrointestinal Gastrointestinal: abdominal pain, no change in stool character, no constipation, no diarrhea, no nausea, no vomiting - Integumentary ROS Integumentary: no bleeding lesions - Neurological Neurological ROS: as per HPI, other visual disturbances (Vision changes in L eye in past 4 weeks. No acute changes s/p brain tumor resection.), no abnormal movements, no abnormal speech, no behavioral changes, no confusion, no dizziness, no focal weakness, no headache(s), no numbness, no paresthesias, no sensory deficit, no syncope, no weakness - Psychiatric Psychiatric general PM: no confusion, no memory loss Palliative Care-Exam - Constitutional Vitals: Temp Pulse Resp BP Pulse Ox 97.8 F 72 16 116/64 90 12/28/18 07:57 12/28/18 07:57 12/28/18 07:57 12/28/18 07:57 12/28/18 07:57 General appearance: Present: average body habitus, no acute distress. Absent: febrile - Head Head Exam: Present: atraumatic, normocephalic Additional comments: Surgical scar on R side of head stretching from parietal down to occipital re gion. [place] intact. No signs of any surround erythema, active bleeding, pus, or drainage. No tenderness to palpation. - Eye Eye exam: Present: EOMI, normal appearance, PERRL. Absent: conjunctival injection, nystagmus Pupils: Present: normal accommodation, PERRL - ENT ENT exam: Present: mucous membranes moist, normal oropharynx - Neck Neck exam: Absent: lymphadenopathy, tenderness - Respiratory Respiratory exam: Present: CTAB. Absent: accessory muscle use, chest wall tenderness, respiratory distress, wheezes, tachypnea - Cardiovascular Cardiovascular exam: Present: RRR, +S1, +S2. Absent: +S3, +S4 - GI/Abdominal Exam GI/Abdominal exam: Present: normal bowel sounds, soft, tenderness (Mild tenderness to deep palpation in the LLQ). Absent: distended, guarding, pulsatile mass - Extremities Exam Extremities exam: Present: normal capillary refill. Absent: calf tenderness, pedal edema, tenderness - Expanded Lower Extremities Exam Lower Leg exam: Present: normal inspection. Absent: erythema, swelling, tenderness - Neurological Exam Neurological exam: Present: alert, altered, CN II-XII intact, oriented X3, r eflexes normal, no focal deficits, strengths equal and symetr throughout. Absent: facial droop, speech deficit - Psychiatric Psychiatric exam: Present: normal mood - Skin Skin exam: Present: dry, normal color Internal Medicine - CN: Reslt - Labs CBC & Chem 7: 12/28/18 00:42 12/28/18 00:42 Labs: Short CBC 12/27/18 12/28/18 Range/Units 13:53 00:42 WBC 42.5 H* 47.2 H* (4.3-11.1) K/mcL Hgb 8.4 L 7.9 L (11.5-15.4) g/dL Hct 25.4 L 24.2 L (35.3-44.9) % Plt Count 211 198 (140-400) K/mcL Neutrophils # 41.7 H 43.8 H (1.6-8.9) K/mcL BMP 12/27/18 12/28/18 13:53 00:42 Sodium 132 L 132 L Potassium 4.1 4.4 Chloride 102 102 Carbon Dioxide 23 23 BUN 20 23 Creatinine 0.44 L 0.57 L Glucose 178 H 140 H Calcium 8.5 L 8.3 L Cardiac Enzymes 12/27/18 12/27/18 12/28/18 Range/Units 13:53 19:04 00:42 Troponin I 0.03 0.03 0.23 H* (< 0.04) ng/mL 12/28/18 Range/Units 06:52 Troponin I 0.10 H* (< 0.04) ng/mL Liver Function 12/27/18 12/28/18 Range/Units 13:53 00:42 Total Bilirubin 0.8 0.8 (0.3-1.0) mg/dL Direct Bilirubin 0.2 (0.0-0.2) mg/dL AST 14 13 (13-39) Units/L ALT 28 25 (7-52) Units/L Alkaline Phosphatase 153 H 154 H (34-104) Units/L Albumin 2.9 L 2.8 L (3.5-5.7) g/dL Urine 12/27/18 Range/Units Unknown Urine Color Yellow (Yellow) Urine Clarity Clear (Clear) Urine pH 6.0 (5.0-8.0) pH Units Ur Specific [place] > 1.030 H (1.010-1.025) Urine Protein Negative (Neg-Trace) mg/dL Urine Glucose (UA) Normal (Normal) mg/dL - ABG Interpretation ABG results: PT/INR, D-dimer PT 13.2 Seconds (9.4-12.1) H 12/27/18 13:53 - Impressions Impressions Chest X-Ray 12/27/18 13:19 IMPRESSION: Cavitary left upper lobe mass, presumed malignant. New right lower thoracic lesion, consistent with rib metastasis as seen on subsequent CT. D/ / 12/27/2018 14:02:18 Stas Conroy MD / [facility] Interpreting Provider: Stas Conroy MD Dissection 12/27/18 13:42 IMPRESSION: 1. Atherosclerotic disease of the aorta, without evidence of aneurysm or dissection. 2. Interval increase in size of the patient's left upper lobe cavitary mass, most consistent with progressive primary lung cancer. 3. New small bilateral pleural effusions with mild bibasilar atelectasis. 4. Interval increase in size of a now 12 mm left lower lobe pulmonary nodule, most consistent with metastatic disease. 5. Interval enlargement of a malignant and likely metastatic AP window lymph node. 6. Interval enlargement of bilateral adrenal metastases. 7. Multiple various sized low-attenuation nodules within the pancreatic body and tail, most likely reflecting metastatic disease given their multiplicity. A primary pancreatic malignancy cannot be entirely excluded. 8. Fat stranding within the left upper quadrant with multiple scattered low-attenuation nodular lesions throughout the mesentery are most consistent with peritoneal carcinomatosis, as detailed above. 9. Moderate amount of nonspecific free pelvic fluid. 10. Interval increase in size of a destructive osseous metastasis of the right 7th rib. D/ / 12/27/2018 16:23:05 Sim Medellin MD / [facility] Interpreting Provider: Sim Medellin MD Head CT 12/27/18 13:42 IMPRESSION: 1. Multiple brain lesions as described compatible with metastatic disease. 2. No evidence of acute intracranial hemorrhage or midline shift or herniation. 3. Postsurgical changes in the right parieto-occipital region. D/ / 12/27/2018 15:41:21 Bella Virgen MD / [facility] Interpreting Provider: Bella Virgen MD Consult Discharge Plan - Plan Referrals: NONE,PCP [Primary Care Provider] - Palliative Quality Palliative Quality: Screen for Code Status: Yes, Screen for Goals of Care: Yes, Screen for Pain: Yes, If Pain Regimen Started, Initiate Bowel Regimen: Yes, Screen for Nausea/Vomitting: Yes Code Status: 12/27/18 18:10 Resuscitation Status: Active [RES] Routine Comment: Resuscitation Status: [id number] <Edna Potts - Last Filed: 12/28/18 16:24> Date of Encounter: 12/28/18 - Assessment and Plan (1) Abdominal pain Current Visit: Yes Status: Acute (2) Encounter for palliative care Current Visit: Yes Status: Acute (3) Metastatic disease Current Visit: Yes Status: Acute Palliative-CN HPI - Data of Consult Requesting Physician: Drew Carballo Primary Care Provider: PCP NONE - Consult Narrative History of present illness: Ms. Flynn is a 73 year old female CC: Drew Carballo - Time Spent with Patient Time: Total time spent is greater than 50% in coordination of care (as documented) at patient's floor/unit and/or counseling patient: Palliative Care-Exam - Constitutional Vitals: Temp Pulse Resp BP Pulse Ox 96.8 F L 81 16 105/62 92 12/28/18 15:40 12/28/18 15:40 12/28/18 15:40 12/28/18 15:40 12/28/18 15:40 Internal Medicine - CN: Reslt - Labs CBC & Chem 7: 12/28/18 00:42 12/28/18 00:42 Labs: Short CBC 12/28/18 Range/Units 00:42 WBC 47.2 H* (4.3-11.1) K/mcL Hgb 7.9 L (11.5-15.4) g/dL Hct 24.2 L (35.3-44.9) % Plt Count 198 (140-400) K/mcL Neutrophils # 43.8 H (1.6-8.9) K/mcL BMP 12/28/18 00:42 Sodium 132 L Potassium 4.4 Chloride 102 Carbon Dioxide 23 BUN 23 Creatinine 0.57 L Glucose 140 H Calcium 8.3 L Cardiac Enzymes 12/27/18 12/28/18 12/28/18 Range/Units 19:04 00:42 06:52 Troponin I 0.03 0.23 H* 0.10 H* (< 0.04) ng/mL Liver Function 12/28/18 Range/Units 00:42 Total Bilirubin 0.8 (0.3-1.0) mg/dL AST 13 (13-39) Units/L ALT 25 (7-52) Units/L Alkaline Phosphatase 154 H (34-104) Units/L Albumin 2.8 L (3.5-5.7) g/dL Urine 12/27/18 Range/Units Unknown Urine Color Yellow (Yellow) Urine Clarity Clear (Clear) Urine pH 6.0 (5.0-8.0) pH Units Ur Specific [place] > 1.030 H (1.010-1.025) Urine Protein Negative (Neg-Trace) mg/dL Urine Glucose (UA) Normal (Normal) mg/dL - ABG Interpretation ABG results: PT/INR, D-dimer PT 13.2 Seconds (9.4-12.1) H 12/27/18 13:53 - Impressions Impressions Chest X-Ray 12/27/18 13:19 IMPRESSION: Cavitary left upper lobe mass, presumed malignant. New right lower thoracic lesion, consistent with rib metastasis as seen on subsequent CT. D/ / 12/27/2018 14:02:18 Stas Conroy MD / [email or web address] Interpreting Provider: Stas Conroy MD Dissection 12/27/18 13:42 IMPRESSION: 1. Atherosclerotic disease of the aorta, without evidence of aneurysm or dissection. 2. Interval increase in size of the patient's left upper lobe cavitary mass, most consistent with progressive primary lung cancer. 3. New small bilateral pleural effusions with mild bibasilar atelectasis. 4. Interval increase in size of a now 12 mm left lower lobe pulmonary nodule, most consistent with metastatic disease. 5. Interval enlargement of a malignant and likely metastatic AP window lymph node. 6. Interval enlargement of bilateral adrenal metastases. 7. New small low-attenuation lesion within the peripheral spleen, concerning for metastatic disease 8. Multiple various sized low-attenuation nodules within the pancreatic body and tail, most likely reflecting metastatic disease given their multiplicity. A primary pancreatic malignancy is considered less likely. 9. Fat stranding within the left upper quadrant with multiple scattered low-attenuation nodular lesions throughout the mesentery, is most consistent with peritoneal carcinomatosis, as detailed above. 10. Moderate amount of nonspecific free pelvic fluid. 11. Interval increase in size of a destructive osseous metastasis of the right 7th rib. D/ / 12/27/2018 16:23:05 Sim Medellin MD / [facility] Interpreting Provider: Sim Medellin MD Echocardiogram 12/27/18 18:12 Impressions: LVEF 60-65%. Normal LV chamber size, wall thickness and function. Mild left ventricular diastolic dysfunction. Normal right ventricular structure and function. Mild mitral regurgitation. Mild tricuspid regurgitation. Mild pulmonary hypertension. Left Ventricular Wall Motion: Rest Echo Findings All wall segments showed normal motion. Findings: Study Quality * Technically sub-optimal due to poor echocardiographic windows. ECG Findings * Normal sinus rhythm. Left Ventricle * LVEF 60-65%. * Normal LV chamber size, wall thickness and function. * Mild left ventricular diastolic dysfunction. Right Ventricle * Normal right ventricular structure and function. Left Atrium * Moderately dilated left atrium. Right Atrium * Mildly dilated right atrium. Aortic Valve * Trileaflet aortic valve. * Mildly sclerotic aortic valve leaflets. * No aortic regurgitation. * No aortic stenosis. Mitral Valve * Normal mitral valve structure. * Mild mitral regurgitation. * No mitral stenosis. Tricuspid Valve * Normal tricuspid valve structure. * Mild tricuspid regurgitation. * Mild pulmonary hypertension. Pulmonic Valve * Pulmonic valve not well visualized. * No pulmonic regurgitation. Aorta * Normally sized aortic root. Pericardium * The pericardium appears normal. IVC * The IVC is not well evaluated. Pulmonary Artery * Normal visualized portions of the main pulmonary artery. - Attending Attestation I performed a history and physical examination of the patient and discussed his management with the resident. I reviewed the residents note and agree with the documented findings and plan of care, except as follow: 73 y.o female with recent diagnosis of metastatic lung cancer, with several lung, splenic, brain and bone mets, presenting to the ED for chest pain. Patient had brain surgery for removal of occipital mass at [facility] days prior to admission. Patient stated she was loosing her eyesight and the surgery was made in an urgent bases to attempt to save her vision. first oncology appointment is next week. Palliative care consult for GOC discussion. Met with patient and daughter Sidney. Sidney is MPOA. Discussed current medical condition, trajectory of illness, overall prognosis and goals of care. Keena states that patient is willing to pursue treatment for the cancer, they were told it is very aggressive but treatable. Patient has lost several family members to different cancers, including her mother, and son. She has 2 living sons and a daughter. Patient is the primary decision maker, and she has resolved to pursue treatment at [facility]. Code status remains DNRCCA and DNI> Patient's chest pain has resolved, she complains of abdominal pain, in LUQ, well managed with current dose of oxycodone. Palliative Quality Code Status: 12/27/18 18:10 Resuscitation Status: Active [RES] Routine Comment: Resuscitation Status: [id number] Palliative Scale - Palliative Performance Scale How ambulatory is this patient?: Reduced What is patient's level of activity and evidence of disease?: Unable normal job/work, Significant disease How much self-care assistance does patient require?: Occasional assistance n ecessary How much oral intake does the patient have?: Normal or reduced What is this patient's level of consciousness?: Full Palliative Performance Score: 70 %
--- NOTE | 2018-12-28 11:20 | Cardiology Consult Note ---
<Davin Velazquez R - Last Filed: 12/28/18 11:27> Date of Encounter: 12/28/18 Time of Encounter: 11:20 Assessment and Plan (1) Elevated troponin Current Visit: Yes Status: Acute Troponin negative x 2, then 0.23, 0.10 in setting of leukocystosis WBC 47.2, anemia with HGB 7.9, metastatic lung/brain cancer. Suspect demand ischemia, nondiagnostic for ACS. ECG no ischemic changes. SR. Reports chest pain with radiation to left arm, worse with inspiration. Improved with pain meds. Could be secondary to lung masses. CTA negative for PE. TTE resulted--LVEF 60-65%. Normal LV chamber size, wall thickness and function. Mild LVDD. Normal RV structure and function. Mild MR. Mild TR. Mild phtn. Pt has poor prognosis and is DNRCCA-DNI. Palliative saw pt. No further cardiac recs. Cardiology signing off. Reconsult PRN. Discussion w patient/family: The assessment and plan as outlined above was discussed with the patient and/or family members who expressed understanding and agreement. All questions were answered. Thank you for involving us in the care of your patient. Please call with any questions. I will discuss all the above with Dr. Self and make changes as necessary. History of Present Illness Consult date: 12/28/18 Consult reason: Elevated troponin Chief complaint: chest pain History of present illness: Ms. Flynn is a 73 year old female with PMH of newly diagnosed with lung ca with extensive metastatic disease including the brain. Pt states she was diagnosed with lung ca within the last month and given significant brain mets, she underwent surgical resection of the mass in recent days at [facility]. She presented for sharp midline chest pain with radiation to the left arm that persisted overnight 2 nights ago, now resolved. She states taking a deep breath made her pain worst. Currently she is resting in bed and denies any chest pain at this time, but has had a few intermittent brief episodes of recurrence. Has hx of extensive tobacco abuse and reports of quitting two weeks ago. Troponins negative x 2, then 0.23, 0.10. Cardiology consulted for further recs. Past Med Surg Social Fam HX - Past Medical History Medical history: malignancy (metastatic lung ca) Additional medical history: Lung, breast, brain cancer Psychiatric history: no psych history - Past Surgical History Additional surgical history: tumor removal from head - Social History Smoking Status: Former smoker Smokeless Tobacco Status: No Alcohol use: none Drug use: none Medications and Allergies Acetaminophen [Tylenol] 500 mg PO Q6HR PRN 12/27/18 [History] Carvedilol [Coreg] 12.5 mg PO BIDWM 12/27/18 [History] Dexamethasone 4 mg PO DAILY 12/27/18 [History] Famotidine [Heartburn Prevention] 20 mg PO BID 12/27/18 [History] NIFEdipine [Nifedipine ER] 90 mg PO DAILY 12/27/18 [History] Allergy/AdvReac Type Severity Reaction Status Date / Time No Known Allergies Allergy Verified 11/10/18 10:18 All Systems Review: The remainder of the systems were reviewed and are negative - Cardiovascular Cardiovascular: as per HPI, chest pain at rest, chest pain with exertion, radiating jaw, neck or arm pain Physical Examination Vital Signs, Last 4 Hours Temp Pulse Resp BP Pulse Ox 12/28/18 07:57 97.8 F 72 16 116/64 90 Vital Signs Temp Pulse Resp BP Pulse Ox 12/28/18 07:57 97.8 F 72 16 116/64 90 12/28/18 02:59 99.1 F 69 15 94/55 92 12/27/18 23:32 98.5 F 65 15 96/55 92 12/27/18 19:21 97.8 F 73 15 100/60 93 12/27/18 13:39 96 12/27/18 13:36 60 18 108/54 95 12/27/18 13:17 98.6 F 62 18 117/51 98 Intake and Output 12/27/18 12/28/18 12/28/18 23:59 07:59 15:59 Intake Total 250 / 250 1100 / 1100 Output Total 0 / 0 250 / 250 125 / 125 Balance 250 / 250 850 / 850 -125 / -125 Intake: IV Fluids 250 / 250 1100 / 1100 0.9 % Sodium Chloride 1,000 ML 1000 / 1000 @ 100 mls/hr IVC .Q10H [facility] Rx#: [id number] Zosyn 3.375 GM In 0.9 % Sodium 100 / 100 Chloride (Mini-Bag +) 100 ML @ 25 mls/hr IVPB Q8HR [facility] Rx#: [id number] Vancocin 1,000 MG In 0.9 % 250 / 250 Sodium Chloride 250 ML @ 167 mls/hr IVPB Q12H [facility] Rx#: [id number] Oral 0 / 0 0 / 0 Output: Urine 0 / 0 250 / 250 125 / 125 Other: # Voids 1 Weight 60.5 kg Patient Weight 12/28/18 23:59 Weight 60.5 kg General: Conversant, No Apparent Distress HEENT: Atraumatic, Normocephaly, Mucus Membranes Moist Neck: No JVD, Normal carotid pulses Cardiac: Reg Rate and Rhythm, Normal S1 and S2, No Murmur Lungs: Other (diminished) Neuro: Alert and responsive, No focal deficits noted Abdomen: Soft, Non-Tender Skin: No rashes noted on visualized skin Musculoskeletal: No Chest Wall Tenderness Extremities: No Clubbing, No Cyanosis, No Edema, Normal Pulses Results 12/28/18 00:42 12/28/18 00:42 Lab Results 12/27/18 12/27/18 12/27/18 13:53 13:53 13:53 WBC Hgb Hct Plt Count INR 1.2 APTT 24.0 L Sodium Potassium Chloride Carbon Dioxide BUN Creatinine Glucose Calcium Magnesium Total Bilirubin 0.8 AST 14 ALT 28 Alkaline Phosphatase 153 H Troponin I B-Natriuretic Peptide 424 H Lipase 102 H 12/27/18 12/27/18 12/27/18 13:53 13:53 19:04 WBC 42.5 H* Hgb 8.4 L Hct 25.4 L Plt Count 211 INR APTT Sodium 132 L Potassium 4.1 Chloride 102 Carbon Dioxide 23 BUN 20 Creatinine 0.44 L Glucose 178 H Calcium 8.5 L Magnesium Total Bilirubin AST ALT Alkaline Phosphatase Troponin I 0.03 0.03 B-Natriuretic Peptide Lipase 12/28/18 12/28/18 12/28/18 00:42 00:42 00:42 WBC 47.2 H* Hgb 7.9 L Hct 24.2 L Plt Count 198 INR APTT Sodium 132 L Potassium 4.4 Chloride 102 Carbon Dioxide 23 BUN 23 Creatinine 0.57 L Glucose 140 H Calcium 8.3 L Magnesium 2.0 Total Bilirubin 0.8 AST 13 ALT 25 Alkaline Phosphatase 154 H Troponin I 0.23 H* B-Natriuretic Peptide Lipase 12/28/18 06:52 WBC Hgb Hct Plt Count INR APTT Sodium Potassium Chloride Carbon Dioxide BUN Creatinine Glucose Calcium Magnesium Total Bilirubin AST ALT Alkaline Phosphatase Troponin I 0.10 H* B-Natriuretic Peptide Lipase Short CBC 12/28/18 12/27/18 Range/Units 00:42 13:53 WBC 47.2 H* 42.5 H* (4.3-11.1) K/mcL Hgb 7.9 L 8.4 L (11.5-15.4) g/dL Hct 24.2 L 25.4 L (35.3-44.9) % Plt Count 198 211 (140-400) K/mcL Neutrophils # 43.8 H 41.7 H (1.6-8.9) K/mcL BMP 12/28/18 12/27/18 Range/Units 00:42 13:53 Sodium 132 L 132 L (136-145) mEq/L Potassium 4.4 4.1 (3.5-5.1) mEq/L Chloride 102 102 (98-107) mEq/L Carbon Dioxide 23 23 (23-29) mEq/L BUN 23 20 (8-23) mg/dL Creatinine 0.57 L 0.44 L (0.60-1.20) mg/dL Glucose 140 H 178 H (70-105) mg/dL Calcium 8.3 L 8.5 L (8.6-10.3) mg/dL Cardiac Enzymes 12/28/18 12/28/18 12/27/18 Range/Units 06:52 00:42 19:04 Troponin I 0.10 H* 0.23 H* 0.03 (< 0.04) ng/mL 12/27/18 Range/Units 13:53 Troponin I 0.03 (< 0.04) ng/mL Liver Function 12/28/18 12/27/18 Range/Units 00:42 13:53 Total Bilirubin 0.8 0.8 (0.3-1.0) mg/dL Direct Bilirubin 0.2 (0.0-0.2) mg/dL AST 13 14 (13-39) Units/L ALT 25 28 (7-52) Units/L Alkaline Phosphatase 154 H 153 H (34-104) Units/L Albumin 2.8 L 2.9 L (3.5-5.7) g/dL Urine 12/27/18 Range/Units Unknown Urine Color Yellow (Yellow) Urine Clarity Clear (Clear) Urine pH 6.0 (5.0-8.0) pH Units Ur Specific [place] > 1.030 H (1.010-1.025) Urine Protein Negative (Neg-Trace) mg/dL Urine Glucose (UA) Normal (Normal) mg/dL Impressions Chest X-Ray 12/27/18 13:19 IMPRESSION: Cavitary left upper lobe mass, presumed malignant. New right lower thoracic lesion, consistent with rib metastasis as seen on subsequent CT. D/ / 12/27/2018 14:02:18 Stas Conroy MD / juan carlos Interpreting Provider: Stas Conroy MD Dissection 12/27/18 13:42 IMPRESSION: 1. Atherosclerotic disease of the aorta, without evidence of aneurysm or dissection. 2. Interval increase in size of the patient's left upper lobe cavitary mass, most consistent with progressive primary lung cancer. 3. New small bilateral pleural effusions with mild bibasilar atelectasis. 4. Interval increase in size of a now 12 mm left lower lobe pulmonary nodule, most consistent with metastatic disease. 5. Interval enlargement of a malignant and likely metastatic AP window lymph node. 6. Interval enlargement of bilateral adrenal metastases. 7. Multiple various sized low-attenuation nodules within the pancreatic body and tail, most likely reflecting metastatic disease given their multiplicity. A primary pancreatic malignancy cannot be entirely excluded. 8. Fat stranding within the left upper quadrant with multiple scattered low-attenuation nodular lesions throughout the mesentery are most consistent with peritoneal carcinomatosis, as detailed above. 9. Moderate amount of nonspecific free pelvic fluid. 10. Interval increase in size of a destructive osseous metastasis of the right 7th rib. D/ / 12/27/2018 16:23:05 Sim Medellin MD / juan carlos Interpreting Provider: Sim Medellin MD Head CT 12/27/18 13:42 IMPRESSION: 1. Multiple brain lesions as described compatible with metastatic disease. 2. No evidence of acute intracranial hemorrhage or midline shift or herniation. 3. Postsurgical changes in the right parieto-occipital region. D/ / 12/27/2018 15:41:21 Bella Virgen MD / erika Interpreting Provider: Bella Virgen MD Echocardiogram 12/27/18 18:12 Impressions: LVEF 60-65%. Normal LV chamber size, wall thickness and function. Mild left ventricular diastolic dysfunction. Normal right ventricular structure and function. Mild mitral regurgitation. Mild tricuspid regurgitation. Mild pulmonary hypertension. Left Ventricular Wall Motion: Rest Echo Findings All wall segments showed normal motion. Findings: Study Quality * Technically sub-optimal due to poor echocardiographic windows. ECG Findings * Normal sinus rhythm. Left Ventricle * LVEF 60-65%. * Normal LV chamber size, wall thickness and function. * Mild left ventricular diastolic dysfunction. Right Ventricle * Normal right ventricular structure and function. Left Atrium * Moderately dilated left atrium. Right Atrium * Mildly dilated right atrium. Aortic Valve * Trileaflet aortic valve. * Mildly sclerotic aortic valve leaflets. * No aortic regurgitation. * No aortic stenosis. Mitral Valve * Normal mitral valve structure. * Mild mitral regurgitation. * No mitral stenosis. Tricuspid Valve * Normal tricuspid valve structure. * Mild tricuspid regurgitation. * Mild pulmonary hypertension. Pulmonic Valve * Pulmonic valve not well visualized. * No pulmonic regurgitation. Aorta * Normally sized aortic root. Pericardium * The pericardium appears normal. IVC * The IVC is not well evaluated. Pulmonary Artery * Normal visualized portions of the main pulmonary artery. Active Medications Acetaminophen (Tylenol) 650 mg PO Q6HR PRN PRN Reason: Mild Pain/Fever Stop: 06/28/19 18:11 Hydrocodone Bitart/Acetaminophen ([place] 5-325 Mg) 1 tab PO Q6HR PRN PRN Reason: Moderate Pain Stop: 06/28/19 18:11 Albuterol/Ipratropium (Duoneb) 3 ml IH [id number] PRN PRN Reason: Shortness Of Breath/Wheezing Stop: 06/28/19 18:17 Carvedilol (Coreg) 12.5 mg PO BIDWM [facility]; Protocol Stop: 06/29/19 08:01 Last Admin: 12/28/18 08:52 Dose: 12.5 mg Dexamethasone (Decadron) 4 mg PO DAILY [facility]; Taper Stop: 01/02/19 08:59 Last Admin: 12/28/18 08:55 Dose: 4 mg Famotidine (Pepcid) 20 mg PO BID [facility]; Protocol Stop: 06/28/19 21:01 Last Admin: 12/28/18 08:54 Dose: 20 mg Sodium Chloride (0.9 % Sodium Chloride) 1,000 mls @ 100 mls/hr IVC .Q10H [facility] Stop: 12/28/18 14:14 Last Admin: 12/28/18 08:55 Dose: 100 mls/hr Piperacillin Sod/Tazobactam (Sod 3.375 gm/ Sodium Chloride) 100 mls @ 25 mls/hr IVPB Q8HR [facility] Stop: 06/28/19 21:01 Last Admin: 12/28/18 08:52 Dose: 25 mls/hr Vancomycin HCl 1,000 mg/ (Sodium Chloride) 250 mls @ 167 mls/hr IVPB Q12H [facility]; Protocol Stop: 06/28/19 20:31 Last Admin: 12/28/18 08:56 Dose: 167 mls/hr Magnesium Hydroxide (Milk Of Magnesia Conc) 10 ml PO DAILY PRN PRN Reason: Constipation Stop: 06/28/19 18:11 Naloxone HCl (Narcan) 0.4 mg IVP Q2M PRN PRN Reason: SEE COMMENTS Stop: 06/28/19 18:11 Nifedipine (Procardia Xl) 90 mg PO DAILY [facility] Stop: 06/29/19 09:01 Last Admin: 12/28/18 08:55 Dose: 90 mg Ondansetron HCl (Zofran) 4 mg IVP Q6HR PRN PRN Reason: Nausea And Vomiting Stop: 06/28/19 18:11 Oxycodone HCl (Roxicodone) 10 mg PO Q6HR PRN; Protocol PRN Reason: Severe Pain Stop: 06/28/19 18:34 Last Admin: 12/28/18 07:34 Dose: 10 mg - Imaging and Cardiology Echo: report reviewed - EKG Interpretation EKG results cardiology: personally reviewed (SR) Consult Discharge Plan - Plan Referrals: NONE,PCP [Primary Care Provider] - <Aaliyah Self - Last Filed: 12/28/18 16:20> Date of Encounter: 12/28/18 - Attending Attestation Patient was seen and evaluated independently by me. Findings, assessment and plan were discussed at length with patient, questions answered. Agree with nurse practitioner's/resident's documentation. Addition as follows, 73 yoF CF ho lung cancer with mets to brain with recent brain surgery, anemia. P/w intermittent sharp mid chest pain 2 days, pleuritic. ECG no active ischemia. Trop peak 0.2. TTE preserved LVEF, mild MR/TR, mild PH. leukocytosis, anemia. HD stable, euvolemia on exam. A: Mild troponin elevation, type II STEMI or myocardial injury likely Chest pain, non-anginal likely Advanced metastatic lung cancer, recent brain mets surgery Anemia P: no further cardiac inpatient workup for now medical management Aaliyah Self MD, PhD Assessment and Plan Discussion w patient/family: The assessment and plan as outlined above was discussed with the patient and/or family members who expressed understanding and agreement. All questions were answered. Thank you for involving us in the care of your patient. Please call with any questions. History of Present Illness History of present illness: Ms. Flynn is a 73 year old female All Systems Review: The remainder of the systems were reviewed and are negative Physical Examination Vital Signs, Last 4 Hours Temp Pulse Resp BP Pulse Ox 12/28/18 15:40 96.8 F L 81 16 105/62 92 12/28/18 12:13 98.6 F 70 16 106/64 92 Results 12/28/18 00:42 12/28/18 00:42 Lab Results 12/27/18 12/28/18 12/28/18 19:04 00:42 00:42 WBC 47.2 H* Hgb 7.9 L Hct 24.2 L Plt Count 198 Sodium Potassium Chloride Carbon Dioxide BUN Creatinine Glucose Calcium Magnesium Total Bilirubin AST ALT Alkaline Phosphatase Troponin I 0.03 0.23 H* 12/28/18 12/28/18 00:42 06:52 WBC Hgb Hct Plt Count Sodium 132 L Potassium 4.4 Chloride 102 Carbon Dioxide 23 BUN 23 Creatinine 0.57 L Glucose 140 H Calcium 8.3 L Magnesium 2.0 Total Bilirubin 0.8 AST 13 ALT 25 Alkaline Phosphatase 154 H Troponin I 0.10 H*
--- NOTE | 2018-12-28 11:41 | Oncology Inp Consult Note ---
<SureshVeda S - Last Filed: 12/28/18 18:20> Date of Encounter: 12/28/18 Time of Encounter: 17:32 - Data of Consult Requesting Physician: Drew Carballo Primary Care Provider: PCP NONE Medications and Allergies Acetaminophen [Tylenol] 500 mg PO Q6HR PRN 12/27/18 [History] Carvedilol [Coreg] 12.5 mg PO BIDWM 12/27/18 [History] Dexamethasone 4 mg PO DAILY 12/27/18 [History] Famotidine [Heartburn Prevention] 20 mg PO BID 12/27/18 [History] NIFEdipine [Nifedipine ER] 90 mg PO DAILY 12/27/18 [History] Albuterol Sulfate [Albuterol Inhaler] 2 puff IH Q4H #1 inhaler 12/28/18 [Rx] 3 Allergy/AdvReac Type Severity Reaction Status Date / Time No Known Allergies Allergy Verified 11/10/18 10:18 Consult Discharge Plan - Plan Instructions: Acute Abdominal Pain (DC) Additional Instructions: 1. Please follow up with your primary care physician, oncologist within five days after your discharge from the hospital. 2. Please seek medical help immediately if you have difficulty breathing 3. continue all your home medications as prescribed by your primary care physician and oncologist. Referrals: NONE,PCP [Primary Care Provider] - Prescriptions: Albuterol Sulfate [Albuterol Inhaler] 2 puff IH Q4H #1 inhaler Inpatient Charges Provider: Dr. Blaine Prince Consult - Inpatient: [id number] - Attending Attestation I examined this patient and my medical decision-making was reviewed with the Advanced Practice Nurse Elizabeth seo. I agree with the documented findings, disposition and treatment plan as described except to the extent set forth below. 1. Multiple metastatic lesions. She had multiple brain metastasis. Largest one in the right occipital region S/P right occipital craniotomy on 12/20/2018 at [facility] Molecular testing including Pul Mol and PD-L1 testing from resection at [facility] is pending. She was discharged home on 12/23/2018. Biopsy of the right rib area soft tissue mass showed metastatic poorly differentiated carcinoma. CK 7 positive. Melanoma markers are negative. I do not see synaptophysin and chromogranin level CAT scan chest abdomen and pelvis showed left lung mass. Also pancreatic hypodense lesion in the body and tail. Bilateral adrenal lesions. Patient and family wants follow-up at [facility] for further treatment Plan is to do whole brain radiation at [facility]. This will be followed by systemic treatment after molecular test results are available. We do not have a CA-19-9 level in May consider that if necessary. May consider MSI testing as well 2. Patient admitted with atypical chest pain. Cardiology consult that no evidence of acute coronary syndrome 3. Respiratory failure. Oxygen saturation went down to 68% with even minimal exertion. Patient is adamant about going home tonight to start whole brain r adiation tomorrow at [facility]. Discussed with the hospitalist. Trying to get oxygen arranged for tonight but may be difficult given the shorter time frame Discussed in detail with the patient and the family and reviewed the CAT scan findings of the pictures <Elizabeth Seo Julio - Last Filed: 12/29/18 10:58> Date of Encounter: 12/28/18 Assessment and Plan (1) Brain metastases Status: Chronic Assessment and plan: S/P right occipital craniotomy on 12/20/2018 at [facility] Molecular testing including Pul Mol and PD-L1 testing from resection at [facility] is pending. She was discharged home on 12/23/2018. Plan: Continue decadrom 4 mg daily After long discussion with patient and family, once patients daughter arrived, patient and daughter decided to continue to follow up with [facility] She was planned for outpatient radiation follow-up and CT simulation for whole brain radiotherapy on 12/29/2018 (tomorrow) and would prefer to keep this appointment. (2) Metastatic disease Status: Acute Assessment and plan: Metastatic poorly differentiated carcinoma, stage IV. Widespread metastatic disease to left lower lobe pulmonary nodule, metastatic AP window lymphadenopathy, bilateral adrenal, new small low-attenuation lesion in the p eripheral spleen, multiple nodules within the pancreatic body and tail, low- attenuation nodular lesions throughout the mesentery consistent with peritoneal carcinomatosis and osseous metastasis of the right seventh rib. CTA of the chest, abdomen and pelvis on presentation notes widely progressive disease in comparison to prior imaging in November. S/P IR biopsy of R rib lesion at [facility] with final pathology revealing metastatic poorly differentiated carcinoma, tumor cells are positive for Pancytokeratin- AE1/3, focal rare positivity for CK7 and CD138 and negative for CK20, Thyroid Drug And Alcohol Counselor Factor-1 (TTF-1), GATA3, S-100, SOX-10, HMB-45, p40 and CD34. INI- 1 stain is retained. NSCLC (favored) versus pancreatic primary. Molecular studies from right occipital resection are pending. Plan: Discussed progression of disease as noted on CT imaging, indicative of aggressive nature of cancer. Plan for WBRT with systemic treatment to follow, treatment regimen is TBD pending molecular studies Following long discussion with patient and patients son, she was inrested in folowing up closer to home with [facility] for treatment, after patients daughter arrived and following furhter discussion with family patient then requested to continue to follow up with [facility] for treatment at this time. I will cancel [facility] follow up per patients request We did discuss that it would be Dr. Landry's preference for lung mass biopsy for further histological confirmation, however, given that patient and family wish to follow up with [facility] they wish to leave further treatment decision making to [facility], which is reasonable She is planned for radiation consultation and CT simulation tomorrow at [facility] Should patient/family wish to transfer care to [facility] at any time, contact information was provided or they may speak with [facility] team for referral This plan was discussed with hospitalist team (3) Leukocytosis Status: Chronic Assessment and plan: Neutrophilic leukocytosis: Uncertain of patient's baseline, but chart indicates WBC 14,000 prior to initiation of steroids. WBC have continued to climb, peaking at around 58,000 at [facility] where she also had hematology evaluation. Infectious workup was noted to be negative at that time. Additionally, procalcitonin normal. Flow cytometry without abnormal population. Peripheral smear reviewed and showed normal neutrophils with occasional normal monocyte; no blasts; normal RBC and platelets. Plan: Clinical picture is most consistent with either reactive leukocytosis (2/2 malignancy vs. other, although infectious workup has been negative thus far) and steroid effect. Recommend to continue to monitor clinically for any evidence of infection, trend CBC No evidence of lympho- or myeloproliferative disorder Qualifiers: Leukocytosis type: unspecified Qualified Code(s): D72.829 - Elevated white blood cell count, unspecified - Data of Consult Patient: known to practice within the last 3 years Consult date: 12/28/18 Requesting Physician: Drew Carballo Primary Care Provider: PCP NONE - Consult Narrative Reason for consult: Metastatic poorly differentiated carcinoma History of present illness: Ms Natalia Flynn is a 73 y.o. 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 Patient initially presented to Urgent care for right rib pain and then transferred to [facility] for Xray findings concerning for cavitary lung mass. She had a CT of the chest which revealed 3.8 x 3.0 cm JALEN mass with areas of cavitation (2) two, smaller nodules in the JALEN and LLL, measuring up to 5 mm (2) Enlarged subaortic LN and (3) B/l adrenal nodules. She was then referred to Dr. Landry as an outpa tient for further management on 11/14/2018. She was planned for PET/CT and MRI of the head to complete staging as well as CT guided biopsy of the JALEN mass. Patient did not follow-up following this consultation. On 12/10/2017 she presented to [facility] for acute onset blurry vision and headache with Brain MRI revealed multiple hemorrhagic lesions in b/l cerebral hemispheres (largest is 4.7 x 2.6 cm IP hematoma in R occipital lobe with mild mass effect on R lateral ventricle). She was transferred to [facility] for neurosurgery evaluation who deemed there was not emergent surgical intervention on initial presentation. CT C/A/P demonstrated cavitary JALEN mass (c/f primary lung malignancy), two sub- cm lung nodules, and lesions c/f metastatic disease involving R 7th rib/soft tissue, pancreas, b/l adrenals, R kidney, and RP. She underwent IR biopsy of R rib lesion with final pathology revealing metastatic poorly differentiated carcinoma, tumor cells are positive for Pancytokeratin-AE1/3, focal rare positivity for CK7 and CD138 and negative for CK20, Thyroid Drug And Alcohol Counselor Factor-1 (TTF-1), GATA3, S-100, SOX-10, HMB-45, p40 and CD34. INI-1 stain is retained. NSCLC (favored) versus pancreatic primary. Following further discussions with medical oncology, radiation oncology and neurosurgery it was felt that it would be best for patient to proceed with surgical resection as long as patient is amenable to pursuing additional cancer directed therapies (likely to be followed by WBRT and systemic therapy). She underwent right occipital craniotomy on 12/20/2018. She was planned to have Pul Mol and PD-L1 testing onto brain tumor. She was discharged home on 12/23/2018. She was planned for outpatient follow-up and CT simulation for whole brain radiotherapy on 12/29/2018. On 12/27/2018 patient presented to [facility] ED for sharp midline chest pain with radiation to the left arm that persisted until this morning. She has been admitted for further chest pain workup which is felt to be secondary to lung malignancy and less likely ACS. ER workup included CT head which revealed multiple brain lesions, no evidence of acute intracranial hemorrhage or midline shift or herniation, postsurgical changes in the right parieto-occipital region. CTA of the chest/abdomen/pelvis reveals: 1. Atherosclerotic disease of the aorta, without evidence of aneurysm or dissection. 2. Interval increase in size of the patient's left upper lobe cavitary mass, most consistent with progressive primary lung cancer. 3. New small bilateral pleural effusions with mild bibasilar atelectasis. 4. Interval increase in size of a now 12 mm left lower lobe pulmonary nodule, most consistent with metastatic disease. 5. Interval enlargement of a malignant and likely metastatic AP window lymph node. 6. Interval enlargement of bilateral adrenal metastases. 7. New small low-attenuation lesion within the peripheral spleen, concerning for metastatic disease 8. Multiple various sized low-attenuation nodules within the pancreatic body and tail, most likely reflecting metastatic disease given their multiplicity. A primary pancreatic malignancy is considered less likely. 9. Fat stranding within the left upper quadrant with multiple scattered low-attenuation nodular lesions throughout the mesentery, is most consistent with peritoneal carcinomatosis, as detailed above. 10. Moderate amount of nonspecific free pelvic fluid. 11. Interval increase in size of a destructive osseous metastasis of the right 7th rib. Past Med Surg Social Fam HX - Past Medical History Medical history: malignancy (metastatic lung ca) Additional medical history: Lung, breast, brain cancer Psychiatric history: no psych history - Past Surgical History Additional surgical history: tumor removal from head - Social History Smoking Status: Former smoker Smokeless Tobacco Status: No Alcohol use: none Drug use: none Constitutional: Present: fatigue, weakness. Absent: anorexia, chills, fever(s), frequent falls, headache(s), weight loss Eyes: Present: blurry vision (baseline blurry vision). Absent: change in vision, diplopia Nose, mouth and throat: Absent: dysphagia, odynophagia Cardiovascular: Present: as per HPI. Absent: diaphoresis, palpitations Respiratory: Present: dyspnea on exertion Gastrointestinal: Absent: abdominal pain, hematemesis, hematochezia, melena, nausea, vomiting Genitourinary: Absent: dysuria, urinary incontinence Musculoskeletal: Present: muscle weakness (generalized non focal) Integumentary: Absent: rash, wounds Neurological: Absent: focal weakness, frequent falls Psychiatric: Present: as per HPI Hematologic/Lymphatic: Present: as per HPI Oncology - Exam - Constitutional General appearance: cooperative, no acute distress, no febrile - Head Head exam: Present: atraumatic - ENT ENT exam: Present: mucous membranes moist, normal oropharynx - Respiratory Respiratory exam: Present: decreased breath sounds, CTAB. Absent: respiratory distress - Cardiovascular Cardiovascular exam: Present: RRR - GI/Abdominal GI/Abdominal exam: Present: normal bowel sounds, soft. Absent: tenderness - Extremities Exam Extremities exam: Present: normal inspection. Absent: calf tenderness - Neurological Exam Neurological exam: Present: alert, CN II-XII intact, oriented X3, no focal deficits, strengths equal and symetr throughout - Psychiatric Psychiatric exam: Present: normal affect, normal mood - Skin Skin exam: Present: dry, intact, normal color, warm
[2018-12-28 15:46] VITALS: BP 105/62
--- NOTE | 2018-12-28 17:58 | Discharge Summary ---
Date of Encounter: 12/28/18 Time of Encounter: 17:50 - Discharge Diagnosis (1) Brain metastases Priority: Secondary Status: Chronic (2) Chest pain Priority: Primary Status: Resolved Qualifiers: Chest pain type: unspecified Qualified Code(s): R07.9 - Chest pain, unspecified (3) Elevated troponin Priority: Secondary Status: Acute (4) Leukocytosis Priority: Secondary Status: Chronic Qualifiers: Leukocytosis type: unspecified Qualified Code(s): D72.829 - Elevated white blood cell count, unspecified (5) Lung cancer Priority: Secondary Status: Chronic Qualifiers: Laterality: unspecified laterality Lung location: unspecified part of lung Qualified Code(s): C34.90 - Malignant neoplasm of unspecified part of unspecified bronchus or lung (6) Metastatic disease Priority: Secondary Status: Acute Hospital course: Ms. Flynn is a 73 year old female with hx of newly diagnosed metastatic lung ca with mets to the brain, pancreas, peritoneum who was admitted for evaluation of chest pain. Pt was noted to have elevated troponins. Cardiology evaluated the patient and contributed the troponin elevation to demand ischemia. Pt was noted to be on oxygen support for which she underwent O2 qualification study. pt dropped to 68% with minimal ambulation and social media marketing manager was consulted for arrangement of home oxygen. Pt was also noted to have leukocytosis but no infectious etiology is present. Leukocytosis likely secondary to steroid use and underlying malignancy, abx have been discontinued. Initially when oncology evaluated the patient, as per patient and her son, transitioning care to [place] was started by oncology. However, later today, pt's daughter came and refused care at [facility] and is wanting to continue treatment at [facility]. Pt is scheduled for radiation therapy tomorrow (12/29/18) at [facility], however due to insurance issues patient has to cover for home oxygen out of pocket. train caller nursing manufactured buildings supervisor, social media marketing manager are trying to arrange a portable tank and concentrator for the patient for discharge. Pt is medically stable for discharge to home pending arrangement of home oxygen therapy. Extensive conversation was held with the patient, daughter, family and educated about the need to make arrangement of home oxygen prior to discharge. If home oxygen is not arranged, pt is not medically stable for discharge. Pt and family demonstrate understanding of the diagnosis and this plan. Discharge discussed with: patient, family, nurse, social work, case management, it architecture consultant - Time Spent with Patient Total time spent providing and/or coordinating discharge services: 50 minutes Time spent: Greater than 30 minutes - Discharge Medications Prescriptions: New Albuterol Sulfate [Albuterol Inhaler] 2 puff IH Q4H #1 inhaler Continue NIFEdipine [Nifedipine ER] 90 mg PO DAILY Famotidine [Heartburn Prevention] 20 mg PO BID Acetaminophen [Tylenol] 500 mg PO Q6HR PRN PRN Reason: Pain Carvedilol [Coreg] 12.5 mg PO BIDWM Dexamethasone 4 mg PO DAILY Home Medications: Acetaminophen [Tylenol] 500 mg PO Q6HR PRN 12/27/18 [History] Carvedilol [Coreg] 12.5 mg PO BIDWM 12/27/18 [History] Dexamethasone 4 mg PO DAILY 12/27/18 [History] Famotidine [Heartburn Prevention] 20 mg PO BID 12/27/18 [History] NIFEdipine [Nifedipine ER] 90 mg PO DAILY 12/27/18 [History] Albuterol Sulfate [Albuterol Inhaler] 2 puff IH Q4H #1 inhaler 12/28/18 [Rx] Allergies/Adverse Reactions: Allergy/AdvReac Type Severity Reaction Status Date / Time No Known Allergies Allergy Verified 11/10/18 10:18 Date of admission: 12/27/18 16:47 Primary care physician: PCP NONE Consults: 12/27/18 18:13 Consult to Palliative Care [CONS] Routine Comment: Consulting Provider: [facility] [place] Reason for Consult: establish goals of care Call Completed: No 12/27/18 18:17 Consult to Nutrition [CONS] Routine Comment: Consulting Provider: NUTRITION Reason for Dietary Consult: MST Score Consult to Tool And Die Engineer [CONS] Routine Reason for SW Consult: Patient and family are interested in receiving [facility] 12/28/18 03:03 Consult to Cardiology [CONS] Routine Comment: Consulting Provider: Cardiology [place] Reason for Consult: Presented with chest pain resolved upon arrival, third troponin elevated to 0.23, no EKG changes from admission on repeat EKG. Repeat troponin ordered. No anticoagulation given due to recent brain mass removal last week at [facility]. Call Completed: No 12/28/18 09:15 Consult to Oncology [CONS] Routine Consulting Provider: Oncology [facility] [place] Reason for Consult: metastatic disease (pancreatic ca primary, mets to liver, peritoneum, brain, bone) Call Completed: Yes Discharging clinician: Jolly Aguilar Anticipated date of discharge: 12/28/18 - Constitutional Vitals: Temp Pulse Resp BP Pulse Ox 96.8 F L 81 16 105/62 92 12/28/18 15:40 12/28/18 15:40 12/28/18 15:40 12/28/18 15:40 12/28/18 15:40 Exam: General: No acute distress, AAO x 3 HEENT: EOMI, NC/AT, no scleral icterus, PERRLA, mark intact at the right pareito-occipital region of the skull-site clean, no bleeding noted Respiratory: coarse breath sounds, no wheezing, no rales Cardiovascular: Regular, Rate, Rhythm, No murmurs GI: Soft, Non tender, non distended, normal bowel sounds Ext: No edema, no tenderness, positive pulses Neuro: AAO x 3, no focal deficits - Patient Status Disposition: Home, Self-Care Condition: Fair - Discharge Instructions Follow Up With: NONE,PCP [Primary Care Provider] - Additional Instructions: 1. Please follow up with your primary care physician, oncologist within five days after your discharge from the hospital. 2. Please seek medical help immediately if you have difficulty breathing 3. continue all your home medications as prescribed by your primary care physician and oncologist. - Diet and Activity Activity: wear oxygen at all times
--- NOTE | 2018-12-28 18:00 | Electrocardiograph Report ---
[place] [id number] Test Date: 2018-12-27 Pat Name: Natalia Flynn Department: EXAM21 Room: 3A24 Gender: F Construction Recruiter: : 1945 Requested By: Anshul Taylor Order Number: [id number] Reading MD: Willy Domingo Measurements Intervals [place] Rate: 61 P: 64 CA: 124 QRS: 72 QRSD: 87 T: 75 QT: 386 QTc: 389 Interpretive Statements Sinus rhythm Abnormal R-wave progression, early transition Electronically Signed On 12-28-2018 17:58:47 EDT by Willy Domingo
--- NOTE | 2018-12-28 18:12 | Electrocardiograph Report ---
[place] [address] Test Date: 2018-12-28 Pat Name: Natalia Cobbden Department: 115 Room: 3A24 Gender: F Dehydration Unit Operator: [id number] : 1945 Requested By: Brice Salmeron Order Number: [id number] Reading MD: Willy Domingo Measurements Intervals [place] Rate: 71 P: 43 NM: 134 QRS: 45 QRSD: 93 T: 69 QT: 338 QTc: 361 Interpretive Statements SINUS RHYTHM Electronically Signed On 12-28-2018 18:10:44 EDT by Willy Domingo
--- NOTE | 2018-12-28 18:41 | Physician Discharge Referral ---
Home Health/Hosp Referral Info Transfer to: Home Health Provider in Charge Post Discharge: PCP - Diagnosis (1) Brain metastases Priority: Secondary Status: Chronic (2) Chest pain Priority: Primary Status: Resolved (3) Elevated troponin Priority: Secondary Status: Acute (4) Leukocytosis Priority: Secondary Status: Chronic (5) Lung cancer Priority: Secondary Status: Chronic (6) Metastatic disease Priority: Secondary Status: Acute - Respiratory Orders Smoking Cessation: Smoking cessation has been advised. For more information, call the [place] Tobacco Quit Line at 4-808-LKUL-NOW. - Services Needed Following services are medically necessary services: Nursing, Home Health Aide, Physical Therapy, Occupational Therapy - Transfer Medications Prescriptions: Albuterol Sulfate [Albuterol Inhaler] 2 puff IH Q4H #1 inhaler Home Medications: Acetaminophen [Tylenol] 500 mg PO Q6HR PRN 12/27/18 [History] Carvedilol [Coreg] 12.5 mg PO BIDWM 12/27/18 [History] Dexamethasone 4 mg PO DAILY 12/27/18 [History] Famotidine [Heartburn Prevention] 20 mg PO BID 12/27/18 [History] NIFEdipine [Nifedipine ER] 90 mg PO DAILY 12/27/18 [History] Albuterol Sulfate [Albuterol Inhaler] 2 puff IH Q4H #1 inhaler 12/28/18 [Rx] Allergies/Adverse Reactions: Allergy/AdvReac Type Severity Reaction Status Date / Time No Known Allergies Allergy Verified 11/10/18 10:18 Certification: Further, I certify that my clinical findings support that this patient is homebound (i.e. absences from home require considerable and taxing effort and are for medical reasons or sikh services or infrequently or short duration when for other reasons) because: Homebound Reason: Patient requires assistance of a person or device to safely leave home Attestation: My signature below is to certify that this patient is under my care and that I, or nurse practitioner, or a physician's lpn medical assistant working with me, has a [id number] encounter with this patient.
[2018-12-28] MEDS ORDERED: Aminoglycoside Consult 1 EACH MC ONE (19:26)
== END 2018-12-28 19:27 | disposition home health service (06) ==
LOC: 3ANU 13:11 → EMEROOARM 13:11 → 3ANU 17:08
PROVIDERS: ADMIT Hospitalist; ATTEND Hospitalist